=== PATIENT | male | born 1995 | race Caucasian/White ===

== ENCOUNTER 2022-10-15 16:37 | Inpatient (IN) ==
[2022-10-15] MEDS ORDERED: ZOFRAN INJ 4 MG VIAL ONE ×3 (16:45→23:17)
[2022-10-15] MEDS ORDERED: ZOFRAN INJ 4 MG VIAL IVP ONE ×2 (16:46→18:20)
[2022-10-15 16:50] VITALS: BMI 16.4
[2022-10-15] MEDS ORDERED: NS 1,000 ML IV 1,000 ML IV ONE ×3 (16:55→20:03)
[2022-10-15] MEDS ORDERED: NS 1,000 ML IV 1,000 ML ONE ×3 (16:56→19:47)
[2022-10-15 17:04] LABS: EOSINOPHILS # (AUTO) 0.4 x10^3/uL (0.0-0.2); HEMOGLOBIN 17.1 g/dL (13.5-18.0)
[2022-10-15 17:14] LABS: BASOPHILS # (AUTO) 0.2 X10^3/uL (0.0-0.1); BASOPHILS % (AUTO) 0.8 % (0.2-1.0); EOSINOPHILS % (AUTO) 1.7 % (0.9-2.9); HEMATOCRIT 52.1 % (42.0-54.0); LYMPHOCYTES # (AUTO) 2.7 X10^3/uL (1.3-2.9); MEAN CORPUSCULAR HEMOGLOBIN 29.5 pg (27.0-34.0); MEAN CORPUSCULAR HGB CONC 32.8 g/dL (33.0-35.0); MEAN CORPUSCULAR VOLUME 89.8 fL (80.0-100.0); MONOCYTES # (AUTO) 0.8 x10^3/uL (0.3-0.8); MONOCYTES % (AUTO) 3.8 % (0.0-13.0); NEUTROPHILS # (AUTO) 18.1 x10^3/uL (2.2-4.8); NEUTROPHILS % (AUTO) 81.7 % (42.0-75.0); RED CELL DISTRIBUTION WIDTH 14.6 % (11.6-16.5); WHITE BLOOD COUNT 22.2 X10^3/uL (3.6-10.0)
[2022-10-15 17:26] LABS: ALANINE AMINOTRANSFERASE 22 Units/L (12-78); ALBUMIN 4.9 g/dL (3.4-5.0); ALKALINE PHOSPHATASE 117 Units/L (46-116); ASPARTATE AMINO TRANSFERASE 23 Units/L (15-37); BLOOD UREA NITROGEN 15 mg/dL (7-18); CALCIUM 8.9 mg/dL (8.5-10.1); CARBON DIOXIDE 17.7 mmol/L (21-32); CHLORIDE 92 mmol/L (98-107); COR NA(FOR HYPERGLY) 141 mmol/L (136-145); CREATININE 1.15 mg/dL (0.70-1.30); LIPASE 46 Units/L (73-393); SODIUM 133 mmol/L (136-145); TOTAL PROTEIN 8.4 g/dL (6.4-8.2); eGFR NON BLACK RACES > 60 (>60)
[2022-10-15 17:55] LABS: BAND NEUTROPHILS % 3 % (0-10)
[2022-10-15 17:56] LABS: PLATELET MORPHOLOGY COMMENT NORMAL (NORMAL)
--- NOTE | 2022-10-15 18:14 | DR.N/VMALE ---
HPI Time Seen Time Seen by Provider: 10/15/22 18:10 Primary Care Physician Primary Care Physician: COHERN Complaints Chief Complaint Doctors Comments: NAUSEA,VOMITING AND DIARRHEA SINCE THIS AM. DENIES FEVER. Chief Complaint:: PT C/O OF NAUSEA/VOMITING/DIARRHEA THAT STARTED THIS MORNING PT DENIES FEVER. COVID-19 Coronavirus risk:travel/contact w/high risk person: No Has patient experienced Coronavirus symptoms: No Source History Provided: Patient Mode of Arrival Mode of Arrival: Wheelchair Timing Onset of Chief Complaint: 10/15/22 PMH PMH Past Medical History: Yes Past Medical History: Anxiety, Depression and Diabetes Past Surgical History: Yes Surgical History: Ortho Surgery Family History History of Family Medical Conditions: Yes Family Medical History: Diabetes Mellitus, Cancer, [place] and Coronary Artery Disease Social History Does patient currently use any type of tobacco product: Yes Have you used tobacco products in the last 12 months: Yes Type of Tobacco Use: Cigarettes Does any household member use tobacco: Yes Alcohol Use: Occasionally Do you use any recreational Drugs:: No Lives With: Spouse Lives Where: Home Travel Risk Coronavirus risk:travel/contact w/high risk person: No Has patient experienced Coronavirus symptoms: No Infectious screening In the last 2 months have you had wt loss of >10#?: NO Have you had fever, night sweats or hemotysis?: No Have you traveled outside the country in the last 6 months?: No Isolation: Standard ROS Review of Systems Constitutional: Other (NAUSEA,VOMITING AND DIARRHEA) Eyes: No Symptoms Reported ENTM: No Symptoms Reported Respiratoy: No Symptoms Reported Cardiovascular: No Symptoms Reported Gastrointestinal/Abdominal: Diarrhea, Nausea and Vomiting Genitourinary: No Symptoms Reported Neurological: No Symptoms Reported Musculoskeletal: No Symptoms Reported Integumentary: No Symptoms Reported Hematologic/Lymphatic: No Symptoms Reported Endocrine: No Symptoms Reported Psychiatric: No Symptoms Reported PE Vital Signs Vitals: Temperature 97.9 F Pulse Rate 116 Respiratory Rate 20 Blood Pressure 134/84 O2 Sat by Pulse Oximetry 95 General Limitations: No Limitations General Appearance: In Distress (MODERATE DISTRESS) Head Head Exam: Normal Inspection Eyes Eye exam: Normal Appearance, PERRL and EOMI ENT ENT Exam: Normal Exam, Normal Oropharynx and Normal External Ear Exam Neck Neck Exam: Normal Inspection and Full ROM Chest Chest Inspection: Normal Inspection and Symmetric Chest Wall Rise Respiratory Respiratory Exam: Normal Lung Sounds Bilat Respiratory Exam: Bilateral: Clear to Auscultation Cardiovascular Cardiovascular Exam: Regular Rate and Normal Rhythm Abdominal Exam Abdominal Exam: Hyperactive Bowel Sounds Rectal Rectal Exam: Deferred Extremities Extremities Exam: Normal Inspection Back Back Exam: Normal Inspection Neurologic Neurological Exam: Alert, Oriented X3 and CN II-XII Intact Psychiatric Psychiatric Exam: Anxious Skin Skin Exam: Warm, Dry and Intact MDM Differential Diagnosis Differential Diagnosis: Considerations may Include:: Gastroenteritis and Other (DIABETIC KETOACIDOSIS) COURSE Treatment Treatment: PATIENT WAS GIVEN A BLOUS OF NACL AND INITIALL 8MG OF ZOFRAN IV WITH NO RELEF OF NAUSEA AND VOMITING. WAS GIVEN COMPAZINE 10MG IV AND IT RELIEVED HIS NAUSEA AND VOMITING. HE HAD A BLOOD SUGAR OF 451 AND HE HAD MODERATE ACETONE IN BLOOD. HE WAS GIVEN 5 UNITS OF NOVULIN R IV AND HIS BLOOD SUGAR DECREASED TO 407 AND IT WAS 320 AFTER INSULIN AND BOLUS WAS COMPLETE. THE PATIENT WAS THEN PLACED ON NACL AT 125CC/HR. THIS PATIENT WAS ALSO POSITIVE FOR CAMPHYLOBACER ON STOOL FOR PARASITES . HE ALSO HAD A WBC OF 22.2. PATIENT WAS ADVISED THAT HE NEEDED TO BE PUT IN HOSPITAL TO CONTROL HIS DIABETIC KETOACIDOSIS AND TREAT HIS CAMPHYLOBACTOR SYMPTOMS OF DIARRHEA AND NAUSEA AND VOMITING. THEPATIENT STATED THAT HE IS AGREABLE TO THE PLAN. SPOKE TO DR GREENE AT 2150 AND HE STATED THAT HE WOULD ACCEPT THE PATIENT FOR ADMISSION. ROR Labs Reviewed Laboratory Results Reviewed?: Yes Result Diagrams: 10/15/22 16:51 10/15/22 16:51 Laboratory: 10/15/22 17:58 Stool - Final WBC 22.2 X10^3/uL (3.6-10.0) H 10/15/22 16:51 RBC 5.80 X10^6/uL (4.7-6.0) 10/15/22 16:51 Hgb 17.1 g/dL (13.5-18.0) 10/15/22 16:51 Hct 52.1 % (42.0-54.0) 10/15/22 16:51 MCV 89.8 fL (80.0-100.0) 10/15/22 16:51 MCH 29.5 pg (27.0-34.0) 10/15/22 16:51 MCHC 32.8 g/dL (33.0-35.0) L 10/15/22 16:51 RDW 14.6 % (11.6-16.5) 10/15/22 16:51 Plt Count 282 X10^3/uL (150.0-450.0) 10/15/22 16:51 Plt Count Comment Adequate (ADEQUATE) 10/15/22 16:51 MPV 10.0 fL (7.4-11.0) 10/15/22 16:51 Neut % (Auto) 81.7 % (42.0-75.0) H 10/15/22 16:51 Lymph % (Auto) 12.0 % (21.0-51.0) L 10/15/22 16:51 [place] % (Auto) 3.8 % (0.0-13.0) 10/15/22 16:51 Eos % (Auto) 1.7 % (0.9-2.9) 10/15/22 16:51 Baso % (Auto) 0.8 % (0.2-1.0) 10/15/22 16:51 Neut # (Auto) 18.1 x10^3/uL (2.2-4.8) H 10/15/22 16:51 Lymph # (Auto) 2.7 X10^3/uL (1.3-2.9) 10/15/22 16:51 [place] # (Auto) 0.8 x10^3/uL (0.3-0.8) 10/15/22 16:51 Eos # (Auto) 0.4 x10^3/uL (0.0-0.2) H 10/15/22 16:51 Baso # (Auto) 0.2 X10^3/uL (0.0-0.1) H 10/15/22 16:51 Absolute Nucleated RBC 0.2 /100WBC 10/15/22 16:51 Total Counted 100 10/15/22 16:51 Neutrophils % (Manual) 84 % (39-76) H 10/15/22 16:51 Band Neutrophils % 3 % (0-10) 10/15/22 16:51 Lymphocytes % (Manual) 10 % (13-43) L 10/15/22 16:51 Eosinophils % (Manual) 3 % (0-6) 10/15/22 16:51 Plt Morphology Comment Normal (NORMAL) 10/15/22 16:51 RBC Morphology Normal (NORMAL) 10/15/22 16:51 Sodium 133 mmol/L (136-145) L 10/15/22 16:51 Corrected Sodium 141 mmol/L (136-145) 10/15/22 16:51 Potassium 4.2 mmol/L (3.5-5.1) 10/15/22 16:51 Chloride 92 mmol/L (98-107) L 10/15/22 16:51 Carbon Dioxide 17.7 mmol/L (21-32) L 10/15/22 16:51 BUN 15 mg/dL (7-18) 10/15/22 16:51 Creatinine 1.15 mg/dL (0.70-1.30) 10/15/22 16:51 Est GFR (MDRD) Af Amer > 60 (>60) 10/15/22 16:51 Est GFR (MDRD) Non-Af > 60 (>60) 10/15/22 16:51 Glucose 451 mg/dL (65-99) H 10/15/22 16:51 POC Glucose (mg/dL) 320 mg/dL (65-99) H 10/15/22 19:56 Calcium 8.9 mg/dL (8.5-10.1) 10/15/22 16:51 Corrected Calcium TNP 10/15/22 16:51 Total Bilirubin 1.90 mg/dL (0.2-1.0) H 10/15/22 16:51 AST 23 Units/L (15-37) 10/15/22 16:51 ALT 22 Units/L (12-78) 10/15/22 16:51 Alkaline Phosphatase 117 Units/L (46-116) H 10/15/22 16:51 Total Protein 8.4 g/dL (6.4-8.2) H 10/15/22 16:51 Albumin 4.9 g/dL (3.4-5.0) 10/15/22 16:51 Globulin 3.5 g/dL (2.5-4.5) 10/15/22 16:51 Albumin/Globulin Ratio 1.4 Ratio (1.1-2.1) 10/15/22 16:51 Lipase 46 Units/L (73-393) L 10/15/22 16:51 Specimen Type Clean catch urine 10/15/22 17:58 Urine Color Straw (YELLOW) 10/15/22 17:58 Urine Appearance Clear (CLEAR) 10/15/22 17:58 Urine pH 5.0 (5.0 - 8.0) 10/15/22 17:58 Ur Specific [place] 1.025 (1.000-1.030) 10/15/22 17:58 Urine Protein 3+ (NEGATIVE) 10/15/22 17:58 Urine Glucose (UA) 4+ (NEGATIVE) 10/15/22 17:58 Urine Ketones 4+ (NEGATIVE) 10/15/22 17:58 Urine Blood 2+ (NEGATIVE) 10/15/22 17:58 Urine Nitrite Negative (NEGATIVE) 10/15/22 17:58 Urine Bilirubin Negative (NEGATIVE) 10/15/22 17:58 Urine Urobilinogen Normal (NORMAL) 10/15/22 17:58 Ur Leukocyte Esterase Negative (NEGATIVE) 10/15/22 17:58 Urine RBC 0-2 /HPF (0-3) 10/15/22 17:58 Urine WBC None seen /HPF (0-5) 10/15/22 17:58 Ur Squamous Epith Cells Rare /HPF (NEGATIVE) 10/15/22 17:58 Urine Bacteria Negative /HPF (NEGATIVE) 10/15/22 17:58 Ur Culture Indicated? No/not indicated 10/15/22 17:58 Stl Occult Blood (IFOB) Negative (NEGATIVE) 10/15/22 17:58 Stool for White Cells Positive (NEGATIVE) A 10/15/22 17:58 Stl C. diff Tox B Gene Negative (NEGATIVE) 10/15/22 17:58 Stl C. diff [id number]-[id number] Presumptive negative (NEGATIVE) 10/15/22 17:58 Acetone, Semi-Quant Moderate (NEGATIVE) H 10/15/22 16:51 Cryptosporid parvum Ag Negative (NEGATIVE) 10/15/22 17:58 Giardia lamblia Ag Negative (NEGATIVE) 10/15/22 17:58 Opioid Opioid Risk Tool Age (Juan C box if 16-45): No History of Preadolescent Sexual Abuse: No Total: 0 Total Score Risk Category: Low Risk Copyright: Epifanio DE OLIVEIRA predicting aberrant behaviors Discharge Plan Diagnosis Discharge Problem: Diabetic keto-acidosis, Vomiting and diarrhea, Campylobacter diarrhea, Leucocytosis Discharge Plan Patient Disposition: 09 ADMITTED INPATIENT Condition: Stable Prescriptions: No Action paroxetine HCl 20 mg tablet 1 tab PO QAM Fiasp U-100 Insulin 100 unit/mL Solution See Rx Instructions .ROUTE .COMPLEX Rx Instructions: 1 UNIT PER NUMBER OF CARB INTAKE insulin degludec [Tresiba U-100 Insulin] 100 unit/mL Solution 13 unit SUBCUT QDAY Health Concerns: Post Hospitalization: new medications and changes needed to prevent readmission or further decline. Pt educated and given instructions on all concerns. Plan of Treatment: Continue with present treatment and follow up plan. Pt is to keep follow up appointment as instructed and take medications as ordered. Orders to Discharge Patient Discharge Orders: Transfer (Routine); Ordered 10/15/22 Ordered By: Aristeo Angeles Follow ups/Referrals Follow ups/Referrals: alina vargas [Primary Care Provider] - 3 days
[2022-10-15] MEDS ORDERED: NovoLIN R (or HumuLIN R) IV ONE (18:34)
[2022-10-15 18:43] LABS: BILIRUBIN,URINE NEGATIVE (NEGATIVE); BLOOD/HEMOGLOBIN,URINE 2+ (NEGATIVE); GLUCOSE, URINE 4+ (NEGATIVE); KETONES,URINE 4+ (NEGATIVE); LEUKOCYTE ESTERASE ,URINE NEGATIVE (NEGATIVE); NITRITES,URINE NEGATIVE (NEGATIVE); PROTEIN,URINE 3+ (NEGATIVE); UROBILINOGEN,URINE NORMAL (NORMAL)
[2022-10-15 18:53] LABS: APPEARANCE,URINE CLEAR (CLEAR); COLOR,URINE STRAW (YELLOW); RBC,URINE 0-2 /HPF (0-3)
[2022-10-15 18:54] LABS: BACTERIA,URINE NEGATIVE /HPF (NEGATIVE); SQUAMOUS EPITHELIAL CELL,UR RARE /HPF (NEGATIVE)
[2022-10-15] MEDS ORDERED: NovoLIN R (or HumuLIN R) ONE ×2 (18:59→23:18)
[2022-10-15] MEDS ORDERED: COMPAZINE INJ IVP ONE (19:07)
[2022-10-15] MEDS ORDERED: COMPAZINE INJ ONE (19:09)
[2022-10-15 19:22] LABS: CRYPTOSPORIDIUM PARVUM ANTIGEN NEGATIVE (NEGATIVE); GIARDIA LAMBLIA ANTIGEN NEGATIVE (NEGATIVE)
[2022-10-15] MEDS ORDERED: PHENERGAN INJ 25 MG IM ONE ×2 (22:13→22:14)
[2022-10-15] MEDS: NovoLIN R (or HumuLIN R) SUBCUT PRN (23:29)
[2022-10-15] MEDS: NS 1,000 ML IV 1,000 ML IV SCH (23:30)
[2022-10-15] MEDS: ZOFRAN INJ 4 MG VIAL IVP SCH (23:31)
[2022-10-16] MEDS: NovoLIN R (or HumuLIN R) SUBCUT PRN (01:20)
--- NOTE | 2022-10-16 02:53 | RAD ---
PROCEDURE: Chest X-ray 1 View .HISTORY: Nausea, vomiting, and diarrhea today.TECHNIQUE: AP view .COMPARISON: None .TECHNICAL QUALITY: Satisfactory .FINDINGS:Normal size heart .Mediastinum and hilar regions show no masses or lymphadenopathy .Normal central vascularity .No pulmonary consolidation, masses, pleural fluid, or pneumothorax .No acute bony abnormality .IMPRESSION:No active cardiopulmonary disease .Electronically signed by: Wallace Olmstead (Oct 16, 2022 02:52:18)
[2022-10-16] MEDS: ZOFRAN INJ 4 MG VIAL IVP SCH ×4 (03:28→20:09)
[2022-10-16] MEDS: NS 1,000 ML IV 1,000 ML IV SCH ×2 (04:01→07:21)
[2022-10-16] MEDS ORDERED: D5 NS 1,000 ML IV 1,000 ML IV ONE (04:15)
[2022-10-16] MEDS ORDERED: D5 NS 1,000 ML IV 1,000 ML IV SCH (05:00)
[2022-10-16 05:04] LABS: BASOPHILS # (AUTO) 0.1 X10^3/uL (0.0-0.1); BASOPHILS % (AUTO) 0.4 % (0.2-1.0); EOSINOPHILS % (AUTO) 0.1 % (0.9-2.9); HEMATOCRIT 41.7 % (42.0-54.0); LYMPHOCYTES # (AUTO) 1.3 X10^3/uL (1.3-2.9); LYMPHOCYTES % (AUTO) 7.2 % (21.0-51.0); MEAN CORPUSCULAR HEMOGLOBIN 29.5 pg (27.0-34.0); MEAN CORPUSCULAR HGB CONC 33.7 g/dL (33.0-35.0); MEAN CORPUSCULAR VOLUME 87.5 fL (80.0-100.0); MEAN PLATELET VOLUME 9.4 fL (7.4-11.0); MONOCYTES # (AUTO) 1.1 x10^3/uL (0.3-0.8); MONOCYTES % (AUTO) 5.8 % (0.0-13.0); NEUTROPHILS # (AUTO) 15.8 x10^3/uL (2.2-4.8); NEUTROPHILS % (AUTO) 86.5 % (42.0-75.0); RED BLOOD COUNT 4.77 X10^6/uL (4.7-6.0); RED CELL DISTRIBUTION WIDTH 15.1 % (11.6-16.5); WHITE BLOOD COUNT 18.2 X10^3/uL (3.6-10.0)
[2022-10-16 05:17] LABS: HEMOGLOBIN 14.1 g/dL (13.5-18.0)
[2022-10-16 05:25] LABS: ALANINE AMINOTRANSFERASE 16 Units/L (12-78); ALBUMIN 3.5 g/dL (3.4-5.0); ALKALINE PHOSPHATASE 83 Units/L (46-116); ASPARTATE AMINO TRANSFERASE 25 Units/L (15-37); BLOOD UREA NITROGEN 12 mg/dL (7-18); CALCIUM 7.7 mg/dL (8.5-10.1); CARBON DIOXIDE 17.6 mmol/L (21-32); CHLORIDE 108 mmol/L (98-107); COR NA(FOR HYPERGLY) 142 mmol/L (136-145); CREATININE 1.15 mg/dL (0.70-1.30); SODIUM 141 mmol/L (136-145); TOTAL PROTEIN 6.2 g/dL (6.4-8.2); eGFR NON BLACK RACES > 60 (>60)
[2022-10-16 05:27] LABS: SERUM ACETONE MODERATE (NEGATIVE)
[2022-10-16] MEDS ORDERED: ZITHROMAX SUSP BTL 200 MG/5 ML PO SCH (09:00)
[2022-10-16] MEDS ORDERED: PHENERGAN INJ 25 MG IM ONE (10:33)
[2022-10-16 10:37] LABS: ABG BASE EXCESS -17.6 mmol/L (-2.0-2.0)
[2022-10-16 10:38] LABS: ABG ALLEN TEST POS; ABG HCO3 8.6 mmol/L (22-26)
[2022-10-16] MEDS: PHENERGAN INJ 25 MG IM PRN ×2 (10:41→16:50)
[2022-10-16] MEDS: MYXREDLIN 100 UNIT/100 ML BAG 100 UNIT/100 ML PLAST..BAG IV PRN (10:57)
--- NOTE | 2022-10-16 11:49 | DR.H&P ---
H&P History & Physical for Day of: H&P Date: 10/16/22 Chief Complaint Chief Complaint: Nausea, vomiting and diarrhea Allergies Allergies Allergy/AdvReac Type Severity Reaction Status Date / Time ibuprofen [From Motrin] Allergy Verified 10/01/22 05:42 morphine Allergy Verified 10/01/22 05:42 peanut Allergy Verified 10/01/22 05:42 Penicillins Allergy Verified 10/01/22 05:42 History of Present Illness History of Present Illness: This is a pleasant 27-year-old white male who presented to the emergency department yesterday evening with complaints of naus ea, vomiting and diarrhea that started earlier in the morning. Patient was ill- appearing in the emergency department and work-up revealed that he had moderate acetone in the blood consistent with diabetic ketoacidosis. Patient is a type I diabetic. Stool culture was done and test for Campylobacter was positive. Because of his DKA and Campylobacter enteritis we decided to go ahead and admitting to the ICU for treatment. He was noted to have an elevated white count of around 23,000. Past Medical History Past Medical History: Anxiety, Depression and Diabetes Past Surgical History Surgical History: Ortho Surgery Family History Family Medical History: Diabetes Mellitus, [place], Coronary Artery Disease, Heart Failure and Sudden Cardiac Social History Does patient currently use any type of tobacco product: No Have you used tobacco products in the last 12 months: No Type of Tobacco Use: None Does any household member use tobacco: No Alcohol Use: Occasionally Drug Use: None Medications Home Medications: ibuprofen [From Motrin] Allergy (Verified 10/01/22 05:42) morphine Allergy (Verified 10/01/22 05:42) peanut Allergy (Verified 10/01/22 05:42) Penicillins Allergy (Verified 10/01/22 05:42) Labs Result Diagrams: 10/16/22 04:37 10/16/22 10:44 Labs: 10/15/22 17:58 Stool Stool Culture - Preliminary 10/15/22 17:58 Stool - Final Laboratory WBC 18.2 X10^3/uL (3.6-10.0) H 10/16/22 04:37 RBC 4.77 X10^6/uL (4.7-6.0) 10/16/22 04:37 Hgb 14.1 g/dL (13.5-18.0) D 10/16/22 04:37 Hct 41.7 % (42.0-54.0) L 10/16/22 04:37 MCV 87.5 fL (80.0-100.0) 10/16/22 04:37 MCH 29.5 pg (27.0-34.0) 10/16/22 04:37 MCHC 33.7 g/dL (33.0-35.0) 10/16/22 04:37 RDW 15.1 % (11.6-16.5) 10/16/22 04:37 Plt Count 234 X10^3/uL (150.0-450.0) 10/16/22 04:37 Plt Count Comment Adequate (ADEQUATE) 10/15/22 16:51 MPV 9.4 fL (7.4-11.0) 10/16/22 04:37 Neut % (Auto) 86.5 % (42.0-75.0) H 10/16/22 04:37 Lymph % (Auto) 7.2 % (21.0-51.0) L 10/16/22 04:37 [place] % (Auto) 5.8 % (0.0-13.0) 10/16/22 04:37 Eos % (Auto) 0.1 % (0.9-2.9) L 10/16/22 04:37 Baso % (Auto) 0.4 % (0.2-1.0) 10/16/22 04:37 Neut # (Auto) 15.8 x10^3/uL (2.2-4.8) H 10/16/22 04:37 Lymph # (Auto) 1.3 X10^3/uL (1.3-2.9) 10/16/22 04:37 [place] # (Auto) 1.1 x10^3/uL (0.3-0.8) H 10/16/22 04:37 Eos # (Auto) 0.0 x10^3/uL (0.0-0.2) 10/16/22 04:37 Baso # (Auto) 0.1 X10^3/uL (0.0-0.1) 10/16/22 04:37 Absolute Nucleated RBC 0.0 /100WBC 10/16/22 04:37 Total Counted 100 10/15/22 16:51 Neutrophils % (Manual) 84 % (39-76) H 10/15/22 16:51 Band Neutrophils % 3 % (0-10) 10/15/22 16:51 Lymphocytes % (Manual) 10 % (13-43) L 10/15/22 16:51 Eosinophils % (Manual) 3 % (0-6) 10/15/22 16:51 Plt Morphology Comment Normal (NORMAL) 10/15/22 16:51 RBC Morphology Normal (NORMAL) 10/15/22 16:51 Sample Site Lr 10/16/22 10:34 ABG pH 7.200 (7.35-7.45) L 10/16/22 10:34 ABG pCO2 22.0 mmHg (35.0-45.0) L 10/16/22 10:34 ABG pO2 108.0 mmHg (80.0-100.0) H 10/16/22 10:34 ABG HCO3 8.6 mmol/L (22-26) L* 10/16/22 10:34 ABG O2 Saturation 97.0 % (90-100) 10/16/22 10:34 ABG Base Excess -17.6 mmol/L (-2.0-2.0) L 10/16/22 10:34 Kishan Test Pos 10/16/22 10:34 A-a Gradient 14.0 mmHg 10/16/22 10:34 FiO2 21.0 10/16/22 10:34 Blood Gas Comments Pt breanna well cdn 10/16/22 10:34 Sodium 141 mmol/L (136-145) 10/16/22 04:37 Corrected Sodium 142 mmol/L (136-145) 10/16/22 04:37 Potassium 4.3 mmol/L (3.5-5.1) 10/16/22 04:37 Chloride 108 mmol/L (98-107) H 10/16/22 04:37 Carbon Dioxide 17.6 mmol/L (21-32) L 10/16/22 04:37 BUN 12 mg/dL (7-18) 10/16/22 04:37 Creatinine 1.15 mg/dL (0.70-1.30) 10/16/22 04:37 Est GFR (MDRD) Af Amer > 60 (>60) 10/16/22 04:37 Est GFR (MDRD) Non-Af > 60 (>60) 10/16/22 04:37 Glucose 468 mg/dL (65-99) H 10/16/22 10:44 POC Glucose (mg/dL) 425 mg/dL (65-99) H 10/16/22 11:28 Calcium 7.7 mg/dL (8.5-10.1) L 10/16/22 04:37 Corrected Calcium TNP 10/16/22 04:37 Total Bilirubin 0.80 mg/dL (0.2-1.0) 10/16/22 04:37 AST 25 Units/L (15-37) 10/16/22 04:37 ALT 16 Units/L (12-78) 10/16/22 04:37 Alkaline Phosphatase 83 Units/L (46-116) 10/16/22 04:37 Total Protein 6.2 g/dL (6.4-8.2) L 10/16/22 04:37 Albumin 3.5 g/dL (3.4-5.0) 10/16/22 04:37 Globulin 2.7 g/dL (2.5-4.5) 10/16/22 04:37 Albumin/Globulin Ratio 1.3 Ratio (1.1-2.1) 10/16/22 04:37 Lipase 46 Units/L (73-393) L 10/15/22 16:51 Specimen Type Clean catch urine 10/15/22 17:58 Urine Color Straw (YELLOW) 10/15/22 17:58 Urine Appearance Clear (CLEAR) 10/15/22 17:58 Urine pH 5.0 (5.0 - 8.0) 10/15/22 17:58 Ur Specific [place] 1.025 (1.000-1.030) 10/15/22 17:58 Urine Protein 3+ (NEGATIVE) 10/15/22 17:58 Urine Glucose (UA) 4+ (NEGATIVE) 10/15/22 17:58 Urine Ketones 4+ (NEGATIVE) 10/15/22 17:58 Urine Blood 2+ (NEGATIVE) 10/15/22 17:58 Urine Nitrite Negative (NEGATIVE) 10/15/22 17:58 Urine Bilirubin Negative (NEGATIVE) 10/15/22 17:58 Urine Urobilinogen Normal (NORMAL) 10/15/22 17:58 Ur Leukocyte Esterase Negative (NEGATIVE) 10/15/22 17:58 Urine RBC 0-2 /HPF (0-3) 10/15/22 17:58 Urine WBC None seen /HPF (0-5) 10/15/22 17:58 Ur Squamous Epith Cells Rare /HPF (NEGATIVE) 10/15/22 17:58 Urine Bacteria Negative /HPF (NEGATIVE) 10/15/22 17:58 Ur Culture Indicated? No/not indicated 10/15/22 17:58 Stl Occult Blood (IFOB) Negative (NEGATIVE) 10/15/22 17:58 Stool for White Cells Positive (NEGATIVE) A 10/15/22 17:58 Stl C. diff Tox B Gene Negative (NEGATIVE) 10/15/22 17:58 Stl C. diff [id number] Presumptive negative (NEGATIVE) 10/15/22 17:58 Acetone, Semi-Quant Small (NEGATIVE) H 10/16/22 10:44 Cryptosporid parvum Ag Negative (NEGATIVE) 10/15/22 17:58 Giardia lamblia Ag Negative (NEGATIVE) 10/15/22 17:58 Review of Systems Constitutional: Sweats and Weakness Eyes: No Symptoms Reported ENT: No Symptoms Reported Respiratory: No Symptoms Reported Cardiovascular: No Symptoms Reported Gastrointestinal: Nausea, Vomiting and Diarrhea Genitourinary: No Symptoms Reported Musculoskeletal: No Symptoms Reported Skin: No Symptoms Reported Neurological: No Symptoms Reported Physical Exam Vital Signs: Temperature 99.1 F Pulse Rate 125 Respiratory Rate 30 Blood Pressure [Right Arm] 127/60 Blood Pressure 142/96 O2 Sat by Pulse Oximetry 100 Oriented: Other (Ill-appearing) Eyes: Normal Ear: Normal Nose: Normal Throat: Normal Respiratory: Clear Throughout Cardiovascular: Normal Auscultation: Bowel Sounds: Increased Palpation: Normal Tenderness: Normal Skin: Normal Musculoskeletal: Normal Psychiatric: Normal Mood Description: Calm Affect: Flat Speech Pattern: Clear and Appropriate Assessment/Plan (1) Campylobacter diarrhea: Status: Acute Plan: IV Cipro. (2) Leucocytosis: Narrative Support Text: Leukocytosis is mildly improved since last night. Status: Acute Plan: Starting IV Cipro and Flagyl. Continue IV fluid. (3) Diabetic keto-acidosis: Status: Acute Plan: Start insulin drip. I will also check ABG. If he has acidosis I will add bicarbonate to his IV fluid. (4) Vomiting and diarrhea: Status: Acute Plan: Patient is currently on Zofran. I will add as needed Phenergan also for improved nausea and vomiting. I am also adding IV Cipro and Flagyl. I will DC his Zithromax. Review H&P Reviewed: Yes Patient was examined?: Yes
[2022-10-16] MEDS: CIPRO IV 400 MG PREMIX* 400 MG/200 ML IV.SOLN. IV SCH ×2 (12:00→20:09)
[2022-10-16] MEDS: NS 1,000 ML IV 1,000 ML with SODIUM BICARBONATE 8.4% INJ ADULT 50 ML IV SCH ×2 (13:00)
[2022-10-16] MEDS: FLAGYL IV PREMIX 500 MG BAG 500 MG/100 ML BAG IV SCH ×2 (14:51→21:11)
[2022-10-16] MEDS ORDERED: SNACK - Diabetic Appropriate PO SCH (20:00)
[2022-10-17] MEDS: NS 1,000 ML IV 1,000 ML with SODIUM BICARBONATE 8.4% INJ ADULT 50 ML IV SCH ×4 (00:06→05:25)
[2022-10-17] MEDS: PHENERGAN INJ 25 MG IM PRN ×3 (02:09→15:10)
[2022-10-17] MEDS: ZOFRAN INJ 4 MG VIAL IVP SCH ×4 (03:27→20:19)
[2022-10-17 05:15] LABS: BASOPHILS % (AUTO) 0.3 % (0.2-1.0); HEMATOCRIT 37.3 % (42.0-54.0); HEMOGLOBIN 12.7 g/dL (13.5-18.0); LYMPHOCYTES # (AUTO) 0.9 X10^3/uL (1.3-2.9); LYMPHOCYTES % (AUTO) 6.6 % (21.0-51.0); MEAN CORPUSCULAR HEMOGLOBIN 29.9 pg (27.0-34.0); MEAN CORPUSCULAR HGB CONC 33.9 g/dL (33.0-35.0); MEAN CORPUSCULAR VOLUME 88.2 fL (80.0-100.0); MEAN PLATELET VOLUME 9.1 fL (7.4-11.0); MONOCYTES % (AUTO) 6.8 % (0.0-13.0); NEUTROPHILS # (AUTO) 12.2 x10^3/uL (2.2-4.8); NEUTROPHILS % (AUTO) 86.3 % (42.0-75.0); RED BLOOD COUNT 4.23 X10^6/uL (4.7-6.0); WHITE BLOOD COUNT 14.2 X10^3/uL (3.6-10.0)
[2022-10-17] MEDS: FLAGYL IV PREMIX 500 MG BAG 500 MG/100 ML BAG IV SCH ×3 (05:20→21:23)
[2022-10-17 05:28] LABS: ALANINE AMINOTRANSFERASE 19 Units/L (12-78); ALKALINE PHOSPHATASE 65 Units/L (46-116); ASPARTATE AMINO TRANSFERASE 45 Units/L (15-37); BLOOD UREA NITROGEN 10 mg/dL (7-18); CALCIUM 7.8 mg/dL (8.5-10.1); CARBON DIOXIDE 21.4 mmol/L (21-32); CHLORIDE 114 mmol/L (98-107); COR CA(FOR HYPOALB) 8.6 mg/dL (8.5-10.1); COR NA(FOR HYPERGLY) 151 mmol/L (136-145); CREATININE 0.89 mg/dL (0.70-1.30); MAGNESIUM 1.6 mg/dL (2.0-2.9); TOTAL PROTEIN 5.5 g/dL (6.4-8.2); eGFR NON BLACK RACES > 60 (>60)
[2022-10-17 05:41] LABS: SODIUM 150 mmol/L (136-145)
[2022-10-17 05:45] LABS: SERUM ACETONE SMALL (NEGATIVE)
[2022-10-17] MEDS ORDERED: POTASSIUM CHL 60 MEQ/NS 0.45% 500 ML IV PRN (05:47)
[2022-10-17] MEDS ORDERED: POTASSIUM CHLORIDE LIQ 20 MEQ UDC PO PRN (05:47)
[2022-10-17] MEDS ORDERED: K-DUR TAB 20 MEQ PO PRN (05:47)
[2022-10-17] MEDS ORDERED: POTASSIUM CHL 40 MEQ/NS 0.45% 500 ML IV PRN (05:47)
[2022-10-17] MEDS ORDERED: MICRO K EXTEN CAP 10 MEQ PO PRN (05:47)
[2022-10-17] MEDS ORDERED: KLOR-CON PO PRN (05:47)
[2022-10-17] MEDS ORDERED: MAGNESIUM SULFATE 1 GRAM/100 mL PREMIX 1 G/100 ML BAG IV ONE (05:58)
[2022-10-17] MEDS: MAGNESIUM SULFATE 1 GRAM/100 mL PREMIX 1 G/100 ML BAG IV PRN ×3 (06:21→21:24)
[2022-10-17 08:18] LABS: ABG BASE EXCESS -9.7 mmol/L (-2.0-2.0)
[2022-10-17 08:19] LABS: ABG HCO3 14.6 mmol/L (22-26)
[2022-10-17] MEDS ORDERED: COMPAZINE INJ IVP SCH (10:00)
[2022-10-17] MEDS ORDERED: NS IV ONE ×2 (10:00)
[2022-10-17] MEDS ORDERED: SODIUM BICARBONATE IV ONE ×2 (10:00)
[2022-10-17] MEDS: CIPRO IV 400 MG PREMIX* 400 MG/200 ML IV.SOLN. IV SCH ×2 (10:01→20:18)
[2022-10-17] MEDS: COMPAZINE INJ IVP PRN ×2 (12:07→19:29)
[2022-10-17] MEDS: K-RIDER 10 MEQ/NS 100 ML 10 MEQ/100 ML BAG IV PRN ×6 (12:45→20:20)
--- NOTE | 2022-10-17 13:18 | PCM.PROG ---
Progress Note Progress Note for Day of Date of Exam: 10/17/22 Subjective Subjective: Patient is lying in bed comfortably this morning. He has had continued nausea and vomiting and some diarrhea. He does report the diarrhea is still present but has slowed a little bit since yesterday. He is still nauseated and the Phenergan and ondansetron is not helping his nausea. I will start him on Compazine this morning see if that helps better. His acetone has gone from a moderate amount to the small amount in the serum. His white blood cell count has continued to decrease but is still just over 14,000 this morning. ABG shows a much improvement in his acidosis his pH is 7.34 this morning. His stool cultures were positive for Campylobacter. He is receiving IV ciprofloxac in for that. He is noted to be hyponatremic this morning as well is hypokalemic and hypomagnesemic. We will change his IV fluid to one half normal saline at 125 cc an hour. He had previously been on normal saline. We will also start the potassium replacement protocol to correct his hypokalemia and we will also correct his hypomagnesemia. Past Medical Family Social History Allergies: Allergies ibuprofen [From Motrin] Allergy (Verified 10/01/22 05:42) morphine Allergy (Verified 10/01/22 05:42) peanut Allergy (Verified 10/01/22 05:42) Penicillins Allergy (Verified 10/01/22 05:42) Review of Systems ROS: Changes notes (describe) (Patient has continued nausea, vomiting and diarrhea.) Vital Signs and I&O's Vital Signs: Temperature 99.4 F Pulse Rate 90 Respiratory Rate 18 Blood Pressure [Right Arm] 127/60 Blood Pressure 162/99 O2 Sat by Pulse Oximetry 99 Intake and Output: Intake & Output 10/15/22 10/16/22 10/17/22 10/18/22 11:59 11:59 11:59 11:59 Intake Total 1155 / 1155 3596 / 3596 Balance 1155 / 1155 3596 / 3596 Physical Exam Oriented: Other (Ill-appearing) Eyes: Normal Ear: Normal Nose: Normal Throat: Normal Respiratory: Normal Cardiovascular: Normal Auscultation: Bowel Sounds: Increased Tenderness: Normal Skin: Normal Musculoskeletal: Normal Psychiatric: Normal Mood Description: Calm Affect: Flat Speech Pattern: Clear and Appropriate Laboratory and Diagnostics Result Diagrams: 10/17/22 04:33 10/17/22 04:33 Labs: 10/15/22 17:58 Stool Stool Culture - Final 10/15/22 17:58 Stool - Final Laboratory WBC 14.2 X10^3/uL (3.6-10.0) H 10/17/22 04:33 RBC 4.23 X10^6/uL (4.7-6.0) L 10/17/22 04:33 Hgb 12.7 g/dL (13.5-18.0) L 10/17/22 04:33 Hct 37.3 % (42.0-54.0) L 10/17/22 04:33 MCV 88.2 fL (80.0-100.0) 10/17/22 04:33 MCH 29.9 pg (27.0-34.0) 10/17/22 04:33 MCHC 33.9 g/dL (33.0-35.0) 10/17/22 04:33 RDW 15.0 % (11.6-16.5) 10/17/22 04:33 Plt Count 233 X10^3/uL (150.0-450.0) 10/17/22 04:33 Plt Count Comment Adequate (ADEQUATE) 10/15/22 16:51 MPV 9.1 fL (7.4-11.0) 10/17/22 04:33 Neut % (Auto) 86.3 % (42.0-75.0) H 10/17/22 04:33 Lymph % (Auto) 6.6 % (21.0-51.0) L 10/17/22 04:33 [place] % (Auto) 6.8 % (0.0-13.0) 10/17/22 04:33 Eos % (Auto) 0.0 % (0.9-2.9) L 10/17/22 04:33 Baso % (Auto) 0.3 % (0.2-1.0) 10/17/22 04:33 Neut # (Auto) 12.2 x10^3/uL (2.2-4.8) H 10/17/22 04:33 Lymph # (Auto) 0.9 X10^3/uL (1.3-2.9) L 10/17/22 04:33 [place] # (Auto) 1.0 x10^3/uL (0.3-0.8) H 10/17/22 04:33 Eos # (Auto) 0.0 x10^3/uL (0.0-0.2) 10/17/22 04:33 Baso # (Auto) 0.0 X10^3/uL (0.0-0.1) 10/17/22 04:33 Absolute Nucleated RBC 0.0 /100WBC 10/17/22 04:33 Total Counted 100 10/15/22 16:51 Neutrophils % (Manual) 84 % (39-76) H 10/15/22 16:51 Band Neutrophils % 3 % (0-10) 10/15/22 16:51 Lymphocytes % (Manual) 10 % (13-43) L 10/15/22 16:51 Eosinophils % (Manual) 3 % (0-6) 10/15/22 16:51 Plt Morphology Comment Normal (NORMAL) 10/15/22 16:51 RBC Morphology Normal (NORMAL) 10/15/22 16:51 Sample Site [facility] 10/17/22 08:13 ABG pH 7.340 (7.35-7.45) L 10/17/22 08:13 ABG pCO2 27.0 mmHg (35.0-45.0) L 10/17/22 08:13 ABG pO2 104.0 mmHg (80.0-100.0) H 10/17/22 08:13 ABG HCO3 14.6 mmol/L (22-26) L* 10/17/22 08:13 ABG O2 Saturation 98.0 % (90-100) 10/17/22 08:13 ABG Base Excess -9.7 mmol/L (-2.0-2.0) L 10/17/22 08:13 Kishan Test N/a 10/17/22 08:13 A-a Gradient 12.0 mmHg 10/17/22 08:13 FiO2 21.0 10/17/22 08:13 Blood Gas Comments Pt breanna well elj 10/17/22 08:13 Sodium 150 mmol/L (136-145) H* 10/17/22 04:33 Corrected Sodium 151 mmol/L (136-145) H 10/17/22 04:33 Potassium 3.2 mmol/L (3.5-5.1) L 10/17/22 04:33 Chloride 114 mmol/L (98-107) H 10/17/22 04:33 Carbon Dioxide 21.4 mmol/L (21-32) 10/17/22 04:33 BUN 10 mg/dL (7-18) 10/17/22 04:33 Creatinine 0.89 mg/dL (0.70-1.30) 10/17/22 04:33 Est GFR (MDRD) Af Amer > 60 (>60) 10/17/22 04:33 Est GFR (MDRD) Non-Af > 60 (>60) 10/17/22 04:33 Glucose 127 mg/dL (65-99) H 10/17/22 04:33 POC Glucose (mg/dL) 133 mg/dL (65-99) H 10/17/22 12:48 Calcium 7.8 mg/dL (8.5-10.1) L 10/17/22 04:33 Corrected Calcium 8.6 mg/dL (8.5-10.1) 10/17/22 04:33 Magnesium 1.6 mg/dL (2.0-2.9) L 10/17/22 04:33 Total Bilirubin 0.90 mg/dL (0.2-1.0) 10/17/22 04:33 AST 45 Units/L (15-37) H 10/17/22 04:33 ALT 19 Units/L (12-78) 10/17/22 04:33 Alkaline Phosphatase 65 Units/L (46-116) 10/17/22 04:33 Total Protein 5.5 g/dL (6.4-8.2) L 10/17/22 04:33 Albumin 3.0 g/dL (3.4-5.0) L 10/17/22 04:33 Globulin 2.5 g/dL (2.5-4.5) 10/17/22 04:33 Albumin/Globulin Ratio 1.2 Ratio (1.1-2.1) 10/17/22 04:33 Lipase 46 Units/L (73-393) L 10/15/22 16:51 Specimen Type Clean catch urine 10/15/22 17:58 Urine Color Straw (YELLOW) 10/15/22 17:58 Urine Appearance Clear (CLEAR) 10/15/22 17:58 Urine pH 5.0 (5.0 - 8.0) 10/15/22 17:58 Ur Specific [place] 1.025 (1.000-1.030) 10/15/22 17:58 Urine Protein 3+ (NEGATIVE) 10/15/22 17:58 Urine Glucose (UA) 4+ (NEGATIVE) 10/15/22 17:58 Urine Ketones 4+ (NEGATIVE) 10/15/22 17:58 Urine Blood 2+ (NEGATIVE) 10/15/22 17:58 Urine Nitrite Negative (NEGATIVE) 10/15/22 17:58 Urine Bilirubin Negative (NEGATIVE) 10/15/22 17:58 Urine Urobilinogen Normal (NORMAL) 10/15/22 17:58 Ur Leukocyte Esterase Negative (NEGATIVE) 10/15/22 17:58 Urine RBC 0-2 /HPF (0-3) 10/15/22 17:58 Urine WBC None seen /HPF (0-5) 10/15/22 17:58 Ur Squamous Epith Cells Rare /HPF (NEGATIVE) 10/15/22 17:58 Urine Bacteria Negative /HPF (NEGATIVE) 10/15/22 17:58 Ur Culture Indicated? No/not indicated 10/15/22 17:58 Stl Occult Blood (IFOB) Negative (NEGATIVE) 10/15/22 17:58 Stool for White Cells Positive (NEGATIVE) A 10/15/22 17:58 Stl C. diff Tox B Gene Negative (NEGATIVE) 10/15/22 17:58 Stl C. diff [id number] Presumptive negative (NEGATIVE) 10/15/22 17:58 Acetone, Semi-Quant Small (NEGATIVE) H 10/17/22 10:05 Cryptosporid parvum Ag Negative (NEGATIVE) 10/15/22 17:58 Giardia lamblia Ag Negative (NEGATIVE) 10/15/22 17:58 Plan (1) Campylobacter diarrhea: Status: Acute Plan: IV Cipro. (2) Leucocytosis: Status: Acute Narrative Support Text: Leukocytosis continues to improve daily. Plan: Starting IV Cipro and Flagyl. Continue IV fluid. (3) Diabetic keto-acidosis: Status: Acute Narrative Support Text: DKA improved with a small amount of serum acetone this morning. Plan: Continue insulin drip. I will also check ABG. If he has acidosis I will add bicarbonate to his IV fluid x1 this morning then DC it afterwards.. (4) Vomiting and diarrhea: Status: Acute Plan: Patient is currently on Zofran. I will add as needed Phenergan also for improved nausea and vomiting. I am also adding IV Cipro and Flagyl. I will DC his Zithromax. I will add Compazine 10 mg IV every 6 hours as needed nausea and vomiting. (5) Hypernatremia: Status: Acute Plan: DC normal saline and change to half-normal saline 125 cc/h. (6) Hypokalemia: Status: Acute Plan: Correct hypokalemia with potassium replacement protocol. (7) Hypomagnesemia: Status: Acute Plan: Low magnesium with magnesium sulfate on the potassium replacement protocol
[2022-10-17] MEDS ORDERED: NS 1/2 1,000 ML IV 1,000 ML IV ONE (19:09)
[2022-10-17] MEDS: NS 1/2 1,000 ML IV 1,000 ML IV SCH (19:47)
[2022-10-17] MEDS ORDERED: CIPRO IV 400 MG PREMIX* 400 MG/200 ML IV.SOLN. IV ONE (19:48)
[2022-10-18] MEDS: MAGNESIUM SULFATE 1 GRAM/100 mL PREMIX 1 G/100 ML BAG IV PRN (01:03)
[2022-10-18] MEDS: COMPAZINE INJ IVP PRN ×3 (02:05→21:54)
[2022-10-18] MEDS: ZOFRAN INJ 4 MG VIAL IVP SCH ×4 (03:02→20:01)
[2022-10-18] MEDS: NS 1/2 1,000 ML IV 1,000 ML IV SCH ×4 (03:03→17:01)
[2022-10-18 04:55] LABS: BASOPHILS # (AUTO) 0.1 X10^3/uL (0.0-0.1); BASOPHILS % (AUTO) 0.4 % (0.2-1.0); EOSINOPHILS % (AUTO) 0.1 % (0.9-2.9); HEMOGLOBIN 12.3 g/dL (13.5-18.0); LYMPHOCYTES # (AUTO) 1.5 X10^3/uL (1.3-2.9); LYMPHOCYTES % (AUTO) 12.9 % (21.0-51.0); MEAN CORPUSCULAR HEMOGLOBIN 29.8 pg (27.0-34.0); MEAN CORPUSCULAR HGB CONC 34.1 g/dL (33.0-35.0); MEAN CORPUSCULAR VOLUME 87.4 fL (80.0-100.0); MEAN PLATELET VOLUME 8.6 fL (7.4-11.0); MONOCYTES # (AUTO) 0.9 x10^3/uL (0.3-0.8); NEUTROPHILS # (AUTO) 9.3 x10^3/uL (2.2-4.8); NEUTROPHILS % (AUTO) 78.6 % (42.0-75.0); RED BLOOD COUNT 4.12 X10^6/uL (4.7-6.0); RED CELL DISTRIBUTION WIDTH 14.8 % (11.6-16.5); WHITE BLOOD COUNT 11.8 X10^3/uL (3.6-10.0)
[2022-10-18] MEDS: FLAGYL IV PREMIX 500 MG BAG 500 MG/100 ML BAG IV SCH ×3 (05:03→21:00)
[2022-10-18 05:07] LABS: ALANINE AMINOTRANSFERASE 17 Units/L (12-78); ALBUMIN 2.8 g/dL (3.4-5.0); ALKALINE PHOSPHATASE 60 Units/L (46-116); ASPARTATE AMINO TRANSFERASE 51 Units/L (15-37); BLOOD UREA NITROGEN 7 mg/dL (7-18); CALCIUM 7.4 mg/dL (8.5-10.1); CARBON DIOXIDE 27.2 mmol/L (21-32); CHLORIDE 109 mmol/L (98-107); COR CA(FOR HYPOALB) 8.4 mg/dL (8.5-10.1); COR NA(FOR HYPERGLY) 144 mmol/L (136-145); CREATININE 0.81 mg/dL (0.70-1.30); MAGNESIUM 2.3 mg/dL (2.0-2.9); SODIUM 143 mmol/L (136-145); TOTAL PROTEIN 5.1 g/dL (6.4-8.2); eGFR NON BLACK RACES > 60 (>60)
[2022-10-18 05:12] LABS: SERUM ACETONE SMALL (NEGATIVE)
[2022-10-18] MEDS: K-RIDER 10 MEQ/NS 100 ML 10 MEQ/100 ML BAG IV PRN ×4 (05:59→12:40)
[2022-10-18] MEDS: PHENERGAN INJ 25 MG IM PRN ×2 (07:26→18:09)
[2022-10-18] MEDS: LEVAQUIN PREMIX IV 500 MG 500 MG/100 ML BAG IV SCH (08:52)
[2022-10-18] MEDS: MYXREDLIN 100 UNIT/100 ML BAG 100 UNIT/100 ML PLAST..BAG IV PRN (10:05)
[2022-10-18] MEDS ORDERED: LOPRESSOR INJ 5 MG AMP IVP PRN (13:36)
--- NOTE | 2022-10-18 14:56 | PCM.PROG ---
Progress Note Progress Note for Day of Date of Exam: 10/18/22 Subjective Subjective: Patient is lying in bed this morning. He reports he is feeling a little bit better. He reports not having any more diarrhea since last night. His nausea is improved but is still present. His white blood cell count is almost normalized this morning. He was noted to have some hypertension and tachycardia earlier so started him on IV Lopressor 5 mg every 12 hours. All plan we will transition him over to p.o. metoprolol succinate once his nausea has subsided so he can take something by mouth. He still has small amount acetone in the serum this morning. We will plan on rechecking it tomorrow morning and another ABG tomorrow morning as well. We will plan on discharging home once his DKA has resolved and his serum acetone is negative. Potassium slightly low this morning which we will give him p.o. potassium to correct it. Past Medical Family Social History Allergies: Allergies ibuprofen [From Motrin] Allergy (Verified 10/01/22 05:42) morphine Allergy (Verified 10/01/22 05:42) peanut Allergy (Verified 10/01/22 05:42) Penicillins Allergy (Verified 10/01/22 05:42) Review of Systems ROS: Changes notes (describe) (Patient has continued nausea, vomiting and diarrhea.) Vital Signs and I&O's Vital Signs: Temperature 98.6 F Pulse Rate 73 Respiratory Rate 26 Blood Pressure [Right Arm] 127/60 Blood Pressure 161/101 O2 Sat by Pulse Oximetry 99 Intake and Output: Intake & Output 10/16/22 10/17/22 10/18/22 10/19/22 11:59 11:59 11:59 11:59 Intake Total 1155 / 1155 3596 / 3596 3540 / 3540 7.4 / 7.4 Output Total 500 / 500 Balance 1155 / 1155 3596 / 3596 3040 / 3040 7.4 / 7.4 Physical Exam Oriented: Other (Ill-appearing) Eyes: Normal Ear: Normal Nose: Normal Throat: Normal Respiratory: Normal Cardiovascular: Normal Auscultation: Bowel Sounds: Increased Tenderness: Normal Skin: Normal Musculoskeletal: Normal Psychiatric: Normal Mood Description: Calm Affect: Flat Speech Pattern: Clear and Appropriate Laboratory and Diagnostics Result Diagrams: 10/18/22 04:40 10/18/22 14:29 Labs: 10/15/22 17:58 Stool Stool Culture - Final 10/15/22 17:58 Stool - Final Laboratory WBC 11.8 X10^3/uL (3.6-10.0) H 10/18/22 04:40 RBC 4.12 X10^6/uL (4.7-6.0) L 10/18/22 04:40 Hgb 12.3 g/dL (13.5-18.0) L 10/18/22 04:40 Hct 36.0 % (42.0-54.0) L 10/18/22 04:40 MCV 87.4 fL (80.0-100.0) 10/18/22 04:40 MCH 29.8 pg (27.0-34.0) 10/18/22 04:40 MCHC 34.1 g/dL (33.0-35.0) 10/18/22 04:40 RDW 14.8 % (11.6-16.5) 10/18/22 04:40 Plt Count 209 X10^3/uL (150.0-450.0) 10/18/22 04:40 Plt Count Comment Adequate (ADEQUATE) 10/15/22 16:51 MPV 8.6 fL (7.4-11.0) 10/18/22 04:40 Neut % (Auto) 78.6 % (42.0-75.0) H 10/18/22 04:40 Lymph % (Auto) 12.9 % (21.0-51.0) L 10/18/22 04:40 [place] % (Auto) 8.0 % (0.0-13.0) 10/18/22 04:40 Eos % (Auto) 0.1 % (0.9-2.9) L 10/18/22 04:40 Baso % (Auto) 0.4 % (0.2-1.0) 10/18/22 04:40 Neut # (Auto) 9.3 x10^3/uL (2.2-4.8) H 10/18/22 04:40 Lymph # (Auto) 1.5 X10^3/uL (1.3-2.9) 10/18/22 04:40 [place] # (Auto) 0.9 x10^3/uL (0.3-0.8) H 10/18/22 04:40 Eos # (Auto) 0.0 x10^3/uL (0.0-0.2) 10/18/22 04:40 Baso # (Auto) 0.1 X10^3/uL (0.0-0.1) 10/18/22 04:40 Absolute Nucleated RBC 0.0 /100WBC 10/18/22 04:40 Total Counted 100 10/15/22 16:51 Neutrophils % (Manual) 84 % (39-76) H 10/15/22 16:51 Band Neutrophils % 3 % (0-10) 10/15/22 16:51 Lymphocytes % (Manual) 10 % (13-43) L 10/15/22 16:51 Eosinophils % (Manual) 3 % (0-6) 10/15/22 16:51 Plt Morphology Comment Normal (NORMAL) 10/15/22 16:51 RBC Morphology Normal (NORMAL) 10/15/22 16:51 Sample Site [facility] 10/17/22 08:13 ABG pH 7.340 (7.35-7.45) L 10/17/22 08:13 ABG pCO2 27.0 mmHg (35.0-45.0) L 10/17/22 08:13 ABG pO2 104.0 mmHg (80.0-100.0) H 10/17/22 08:13 ABG HCO3 14.6 mmol/L (22-26) L* 10/17/22 08:13 ABG O2 Saturation 98.0 % (90-100) 10/17/22 08:13 ABG Base Excess -9.7 mmol/L (-2.0-2.0) L 10/17/22 08:13 Kishan Test N/a 10/17/22 08:13 A-a Gradient 12.0 mmHg 10/17/22 08:13 FiO2 21.0 10/17/22 08:13 Blood Gas Comments Pt breanna well elj 10/17/22 08:13 Sodium 143 mmol/L (136-145) 10/18/22 04:40 Corrected Sodium 144 mmol/L (136-145) 10/18/22 04:40 Potassium 3.3 mmol/L (3.5-5.1) L 10/18/22 14:29 Chloride 109 mmol/L (98-107) H 10/18/22 04:40 Carbon Dioxide 27.2 mmol/L (21-32) 10/18/22 04:40 BUN 7 mg/dL (7-18) 10/18/22 04:40 Creatinine 0.81 mg/dL (0.70-1.30) 10/18/22 04:40 Est GFR (MDRD) Af Amer > 60 (>60) 10/18/22 04:40 Est GFR (MDRD) Non-Af > 60 (>60) 10/18/22 04:40 Glucose 127 mg/dL (65-99) H 10/18/22 04:40 POC Glucose (mg/dL) 162 mg/dL (65-99) H 10/18/22 14:17 Calcium 7.4 mg/dL (8.5-10.1) L 10/18/22 04:40 Corrected Calcium 8.4 mg/dL (8.5-10.1) L 10/18/22 04:40 Magnesium 2.3 mg/dL (2.0-2.9) 10/18/22 04:40 Total Bilirubin 1.10 mg/dL (0.2-1.0) H 10/18/22 04:40 AST 51 Units/L (15-37) H 10/18/22 04:40 ALT 17 Units/L (12-78) 10/18/22 04:40 Alkaline Phosphatase 60 Units/L (46-116) 10/18/22 04:40 Total Protein 5.1 g/dL (6.4-8.2) L 10/18/22 04:40 Albumin 2.8 g/dL (3.4-5.0) L 10/18/22 04:40 Globulin 2.3 g/dL (2.5-4.5) L 10/18/22 04:40 Albumin/Globulin Ratio 1.2 Ratio (1.1-2.1) 10/18/22 04:40 Lipase 46 Units/L (73-393) L 10/15/22 16:51 Specimen Type Clean catch urine 10/15/22 17:58 Urine Color Straw (YELLOW) 10/15/22 17:58 Urine Appearance Clear (CLEAR) 10/15/22 17:58 Urine pH 5.0 (5.0 - 8.0) 10/15/22 17:58 Ur Specific [place] 1.025 (1.000-1.030) 10/15/22 17:58 Urine Protein 3+ (NEGATIVE) 10/15/22 17:58 Urine Glucose (UA) 4+ (NEGATIVE) 10/15/22 17:58 Urine Ketones 4+ (NEGATIVE) 10/15/22 17:58 Urine Blood 2+ (NEGATIVE) 10/15/22 17:58 Urine Nitrite Negative (NEGATIVE) 10/15/22 17:58 Urine Bilirubin Negative (NEGATIVE) 10/15/22 17:58 Urine Urobilinogen Normal (NORMAL) 10/15/22 17:58 Ur Leukocyte Esterase Negative (NEGATIVE) 10/15/22 17:58 Urine RBC 0-2 /HPF (0-3) 10/15/22 17:58 Urine WBC None seen /HPF (0-5) 10/15/22 17:58 Ur Squamous Epith Cells Rare /HPF (NEGATIVE) 10/15/22 17:58 Urine Bacteria Negative /HPF (NEGATIVE) 10/15/22 17:58 Ur Culture Indicated? No/not indicated 10/15/22 17:58 Stl Occult Blood (IFOB) Negative (NEGATIVE) 10/15/22 17:58 Stool for White Cells Positive (NEGATIVE) A 10/15/22 17:58 Stl C. diff Tox B Gene Negative (NEGATIVE) 10/15/22 17:58 Stl C. diff [id number] Presumptive negative (NEGATIVE) 10/15/22 17:58 Acetone, Semi-Quant Small (NEGATIVE) H 10/18/22 10:42 Cryptosporid parvum Ag Negative (NEGATIVE) 10/15/22 17:58 Giardia lamblia Ag Negative (NEGATIVE) 10/15/22 17:58 Plan (1) Campylobacter diarrhea: Status: Acute Narrative Support Text: Diarrhea is slowing down now. Plan: IV Cipro. (2) Leucocytosis: Status: Acute Narrative Support Text: Continues to improve daily. Plan: Starting IV Cipro and Flagyl. Continue IV fluid. (3) Diabetic keto-acidosis: Status: Acute Narrative Support Text: Improving but not completely resolved. Plan: Continue insulin drip. I will also check ABG and serum acetone in the a.m. (4) Vomiting and diarrhea: Status: Acute Plan: Patient is currently on Zofran. I will add as needed Phenergan also for improved nausea and vomiting. I am also adding IV Cipro and Flagyl. I will DC his Zithromax. I will add Compazine 10 mg IV every 6 hours as needed nausea and vomiting. (5) Hypernatremia: Status: Acute Plan: DC normal saline and change to half-normal saline 125 cc/h. (6) Hypokalemia: Status: Acute Plan: Correct hypokalemia with potassium replacement protocol. (7) Hypomagnesemia: Status: Acute Plan: Low magnesium with magnesium sulfate on the potassium replacement protocol
[2022-10-18] MEDS ORDERED: NS 1/2 1,000 ML IV 1,000 ML IV ONE (16:38)
[2022-10-18] MEDS: LOPRESSOR INJ 5 MG AMP IVP SCH (20:06)
[2022-10-19] MEDS ORDERED: NS 1/2 1,000 ML IV 1,000 ML IV ONE (00:45)
[2022-10-19] MEDS: K-RIDER 10 MEQ/NS 100 ML 10 MEQ/100 ML BAG IV PRN ×3 (01:08→07:24)
[2022-10-19] MEDS: NS 1/2 1,000 ML IV 1,000 ML IV SCH ×3 (02:00→18:35)
[2022-10-19] MEDS: ZOFRAN INJ 4 MG VIAL IVP SCH ×4 (02:00→20:25)
[2022-10-19] MEDS: COMPAZINE INJ IVP PRN (03:11)
[2022-10-19] MEDS: FLAGYL IV PREMIX 500 MG BAG 500 MG/100 ML BAG IV SCH ×3 (05:07→21:23)
[2022-10-19 05:25] LABS: BASOPHILS # (AUTO) 0.1 X10^3/uL (0.0-0.1); BASOPHILS % (AUTO) 0.6 % (0.2-1.0); EOSINOPHILS # (AUTO) 0.1 x10^3/uL (0.0-0.2); EOSINOPHILS % (AUTO) 0.7 % (0.9-2.9); HEMATOCRIT 42.5 % (42.0-54.0); HEMOGLOBIN 14.5 g/dL (13.5-18.0); LYMPHOCYTES # (AUTO) 1.6 X10^3/uL (1.3-2.9); LYMPHOCYTES % (AUTO) 18.7 % (21.0-51.0); MEAN CORPUSCULAR HGB CONC 34.1 g/dL (33.0-35.0); MONOCYTES # (AUTO) 0.7 x10^3/uL (0.3-0.8); MONOCYTES % (AUTO) 8.1 % (0.0-13.0); NEUTROPHILS # (AUTO) 6.2 x10^3/uL (2.2-4.8); NEUTROPHILS % (AUTO) 71.9 % (42.0-75.0); RED BLOOD COUNT 4.83 X10^6/uL (4.7-6.0); RED CELL DISTRIBUTION WIDTH 14.4 % (11.6-16.5); WHITE BLOOD COUNT 8.6 X10^3/uL (3.6-10.0)
[2022-10-19 05:45] LABS: ALANINE AMINOTRANSFERASE 24 Units/L (12-78); ALBUMIN 3.2 g/dL (3.4-5.0); ALKALINE PHOSPHATASE 69 Units/L (46-116); ASPARTATE AMINO TRANSFERASE 68 Units/L (15-37); BLOOD UREA NITROGEN 6 mg/dL (7-18); CALCIUM 7.6 mg/dL (8.5-10.1); CARBON DIOXIDE 30.1 mmol/L (21-32); CHLORIDE 101 mmol/L (98-107); COR CA(FOR HYPOALB) 8.2 mg/dL (8.5-10.1); COR NA(FOR HYPERGLY) 138 mmol/L (136-145); CREATININE 0.75 mg/dL (0.70-1.30); SODIUM 137 mmol/L (136-145); TOTAL PROTEIN 5.7 g/dL (6.4-8.2); eGFR NON BLACK RACES > 60 (>60)
[2022-10-19 08:12] LABS: ABG BASE EXCESS 2.1 mmol/L (-2.0-2.0); ABG HCO3 25.1 mmol/L (22-26)
[2022-10-19 08:13] LABS: ABG ALLEN TEST POS
[2022-10-19] MEDS: LEVAQUIN PREMIX IV 500 MG 500 MG/100 ML BAG IV SCH (08:46)
[2022-10-19] MEDS: LOPRESSOR INJ 5 MG AMP IVP SCH ×2 (08:47→20:26)
[2022-10-19] MEDS: MAGNESIUM SULFATE 1 GRAM/100 mL PREMIX 1 G/100 ML BAG IV PRN ×2 (09:25→11:12)
[2022-10-19] MEDS: PHENERGAN INJ 25 MG IM PRN (10:32)
--- NOTE | 2022-10-19 15:23 | PCM.PROG ---
Progress Note Progress Note for Day of Date of Exam: 10/19/22 Subjective Subjective: Patient is lying in bed this morning. He reports he is feeling a good bit better than the day before. He has had no further diarrhea and no further vomiting at this point time. His white blood cell count has normalized this morning. He still has small acetone from earlier this morning. We rechecked it around 1400 today and see he still has a small amount acetone. We will continue with the insulin drip protocol at this time and recheck his serum acetone again tomorrow. We will start him on a diabetic diet today as well. ABG was done this morning that shows his acidosis has resolved. Hopefully the patient will be ready for discharge home tomorrow if his serum acetone is negati ve. Past Medical Family Social History Allergies: Allergies ibuprofen [From Motrin] Allergy (Verified 10/01/22 05:42) morphine Allergy (Verified 10/01/22 05:42) peanut Allergy (Verified 10/01/22 05:42) Penicillins Allergy (Verified 10/01/22 05:42) Review of Systems ROS: Changes notes (describe) (Patient has continued nausea, vomiting and diarrhea.) Vital Signs and I&O's Vital Signs: Temperature 99 F Pulse Rate 95 Respiratory Rate 32 Blood Pressure [Right Arm] 127/60 Blood Pressure 129/85 O2 Sat by Pulse Oximetry 100 Intake and Output: Intake & Output 10/17/22 10/18/22 10/19/22 10/20/22 11:59 11:59 11:59 11:59 Intake Total 3596 / 3596 3540 / 3540 3067.1 / 3067.1 6.1 / 6.1 Output Total 500 / 500 1400 / 1400 Balance 3596 / 3596 3040 / 3040 1667.1 / 1667.1 6.1 / 6.1 Physical Exam Oriented: Other (Ill-appearing) Eyes: Normal Ear: Normal Nose: Normal Throat: Normal Respiratory: Normal Cardiovascular: Normal Auscultation: Bowel Sounds: Increased Tenderness: Normal Skin: Normal Musculoskeletal: Normal Psychiatric: Normal Mood Description: Calm Affect: Flat Speech Pattern: Clear and Appropriate Laboratory and Diagnostics Result Diagrams: 10/19/22 04:30 10/19/22 10:02 Labs: 10/15/22 17:58 Stool Stool Culture - Final 10/15/22 17:58 Stool - Final Laboratory WBC 8.6 X10^3/uL (3.6-10.0) 10/19/22 04:30 RBC 4.83 X10^6/uL (4.7-6.0) 10/19/22 04:30 Hgb 14.5 g/dL (13.5-18.0) D 10/19/22 04:30 Hct 42.5 % (42.0-54.0) 10/19/22 04:30 MCV 88.0 fL (80.0-100.0) 10/19/22 04:30 MCH 30.0 pg (27.0-34.0) 10/19/22 04:30 MCHC 34.1 g/dL (33.0-35.0) 10/19/22 04:30 RDW 14.4 % (11.6-16.5) 10/19/22 04:30 Plt Count 216 X10^3/uL (150.0-450.0) 10/19/22 04:30 Plt Count Comment Adequate (ADEQUATE) 10/15/22 16:51 MPV 9.0 fL (7.4-11.0) 10/19/22 04:30 Neut % (Auto) 71.9 % (42.0-75.0) 10/19/22 04:30 Lymph % (Auto) 18.7 % (21.0-51.0) L 10/19/22 04:30 [place] % (Auto) 8.1 % (0.0-13.0) 10/19/22 04:30 Eos % (Auto) 0.7 % (0.9-2.9) L 10/19/22 04:30 Baso % (Auto) 0.6 % (0.2-1.0) 10/19/22 04:30 Neut # (Auto) 6.2 x10^3/uL (2.2-4.8) H 10/19/22 04:30 Lymph # (Auto) 1.6 X10^3/uL (1.3-2.9) 10/19/22 04:30 [place] # (Auto) 0.7 x10^3/uL (0.3-0.8) 10/19/22 04:30 Eos # (Auto) 0.1 x10^3/uL (0.0-0.2) 10/19/22 04:30 Baso # (Auto) 0.1 X10^3/uL (0.0-0.1) 10/19/22 04:30 Absolute Nucleated RBC 0.0 /100WBC 10/19/22 04:30 Total Counted 100 10/15/22 16:51 Neutrophils % (Manual) 84 % (39-76) H 10/15/22 16:51 Band Neutrophils % 3 % (0-10) 10/15/22 16:51 Lymphocytes % (Manual) 10 % (13-43) L 10/15/22 16:51 Eosinophils % (Manual) 3 % (0-6) 10/15/22 16:51 Plt Morphology Comment Normal (NORMAL) 10/15/22 16:51 RBC Morphology Normal (NORMAL) 10/15/22 16:51 Sample Site [facility] 10/19/22 08:08 ABG pH 7.490 (7.35-7.45) H 10/19/22 08:08 ABG pCO2 33.0 mmHg (35.0-45.0) L 10/19/22 08:08 ABG pO2 158.0 mmHg (80.0-100.0) H 10/19/22 08:08 ABG HCO3 25.1 mmol/L (22-26) 10/19/22 08:08 ABG O2 Saturation 100.0 % (90-100) 10/19/22 08:08 ABG Base Excess 2.1 mmol/L (-2.0-2.0) H 10/19/22 08:08 Kishan Test Pos 10/19/22 08:08 A-a Gradient -50.0 mmHg 10/19/22 08:08 FiO2 21.0 10/19/22 08:08 Blood Gas Comments Pt breanna well eb 10/19/22 08:08 Sodium 137 mmol/L (136-145) 10/19/22 04:30 Corrected Sodium 138 mmol/L (136-145) 10/19/22 04:30 Potassium 3.9 mmol/L (3.5-5.1) 10/19/22 10:02 Chloride 101 mmol/L (98-107) 10/19/22 04:30 Carbon Dioxide 30.1 mmol/L (21-32) 10/19/22 04:30 BUN 6 mg/dL (7-18) L 10/19/22 04:30 Creatinine 0.75 mg/dL (0.70-1.30) 10/19/22 04:30 Est GFR (MDRD) Af Amer > 60 (>60) 10/19/22 04:30 Est GFR (MDRD) Non-Af > 60 (>60) 10/19/22 04:30 Glucose 134 mg/dL (65-99) H 10/19/22 04:30 POC Glucose (mg/dL) 130 mg/dL (65-99) H 10/19/22 14:24 Calcium 7.6 mg/dL (8.5-10.1) L 10/19/22 04:30 Corrected Calcium 8.2 mg/dL (8.5-10.1) L 10/19/22 04:30 Magnesium 1.5 mg/dL (2.0-2.9) L 10/19/22 04:30 Total Bilirubin 1.50 mg/dL (0.2-1.0) H 10/19/22 04:30 AST 68 Units/L (15-37) H 10/19/22 04:30 ALT 24 Units/L (12-78) 10/19/22 04:30 Alkaline Phosphatase 69 Units/L (46-116) 10/19/22 04:30 Total Protein 5.7 g/dL (6.4-8.2) L 10/19/22 04:30 Albumin 3.2 g/dL (3.4-5.0) L 10/19/22 04:30 Globulin 2.5 g/dL (2.5-4.5) 10/19/22 04:30 Albumin/Globulin Ratio 1.3 Ratio (1.1-2.1) 10/19/22 04:30 Lipase 46 Units/L (73-393) L 10/15/22 16:51 Specimen Type Clean catch urine 10/15/22 17:58 Urine Color Straw (YELLOW) 10/15/22 17:58 Urine Appearance Clear (CLEAR) 10/15/22 17:58 Urine pH 5.0 (5.0 - 8.0) 10/15/22 17:58 Ur Specific [place] 1.025 (1.000-1.030) 10/15/22 17:58 Urine Protein 3+ (NEGATIVE) 10/15/22 17:58 Urine Glucose (UA) 4+ (NEGATIVE) 10/15/22 17:58 Urine Ketones 4+ (NEGATIVE) 10/15/22 17:58 Urine Blood 2+ (NEGATIVE) 10/15/22 17:58 Urine Nitrite Negative (NEGATIVE) 10/15/22 17:58 Urine Bilirubin Negative (NEGATIVE) 10/15/22 17:58 Urine Urobilinogen Normal (NORMAL) 10/15/22 17:58 Ur Leukocyte Esterase Negative (NEGATIVE) 10/15/22 17:58 Urine RBC 0-2 /HPF (0-3) 10/15/22 17:58 Urine WBC None seen /HPF (0-5) 10/15/22 17:58 Ur Squamous Epith Cells Rare /HPF (NEGATIVE) 10/15/22 17:58 Urine Bacteria Negative /HPF (NEGATIVE) 10/15/22 17:58 Ur Culture Indicated? No/not indicated 10/15/22 17:58 Stl Occult Blood (IFOB) Negative (NEGATIVE) 10/15/22 17:58 Stool for White Cells Positive (NEGATIVE) A 10/15/22 17:58 Stl C. diff Tox B Gene Negative (NEGATIVE) 10/15/22 17:58 Stl C. diff [id number] Presumptive negative (NEGATIVE) 10/15/22 17:58 Acetone, Semi-Quant Small (NEGATIVE) H 10/19/22 13:58 Cryptosporid parvum Ag Negative (NEGATIVE) 10/15/22 17:58 Giardia lamblia Ag Negative (NEGATIVE) 10/15/22 17:58 Plan (1) Campylobacter diarrhea: Status: Acute Plan: IV Cipro. (2) Leucocytosis: Status: Acute Plan: Starting IV Cipro and Flagyl. Continue IV fluid. (3) Diabetic keto-acidosis: Status: Acute Plan: Continue insulin drip. I will also check ABG and serum acetone in t he a.m. (4) Vomiting and diarrhea: Status: Acute Plan: Patient is currently on Zofran. I will add as needed Phenergan also for improved nausea and vomiting. I am also adding IV Cipro and Flagyl. I will DC his Zithromax. I will add Compazine 10 mg IV every 6 hours as needed nausea and vomiting. (5) Hypernatremia: Status: Acute Plan: DC normal saline and change to half-normal saline 125 cc/h. (6) Hypokalemia: Status: Acute Plan: Correct hypokalemia with potassium replacement protocol. (7) Hypomagnesemia: Status: Acute Plan: Low magnesium with magnesium sulfate on the potassium replacement protocol
[2022-10-20] MEDS ORDERED: NS 1/2 1,000 ML IV 1,000 ML IV ONE ×2 (00:50→18:25)
[2022-10-20] MEDS: ZOFRAN INJ 4 MG VIAL IVP SCH ×4 (02:31→21:01)
[2022-10-20] MEDS: NS 1/2 1,000 ML IV 1,000 ML IV SCH ×4 (02:31→18:29)
[2022-10-20 04:50] LABS: BASOPHILS # (AUTO) 0.1 X10^3/uL (0.0-0.1); BASOPHILS % (AUTO) 1.1 % (0.2-1.0); EOSINOPHILS # (AUTO) 0.2 x10^3/uL (0.0-0.2); EOSINOPHILS % (AUTO) 2.1 % (0.9-2.9); HEMATOCRIT 43.2 % (42.0-54.0); HEMOGLOBIN 14.9 g/dL (13.5-18.0); LYMPHOCYTES % (AUTO) 36.6 % (21.0-51.0); MEAN CORPUSCULAR HEMOGLOBIN 30.2 pg (27.0-34.0); MEAN CORPUSCULAR HGB CONC 34.6 g/dL (33.0-35.0); MEAN CORPUSCULAR VOLUME 87.3 fL (80.0-100.0); MEAN PLATELET VOLUME 9.2 fL (7.4-11.0); MONOCYTES # (AUTO) 0.6 x10^3/uL (0.3-0.8); MONOCYTES % (AUTO) 7.3 % (0.0-13.0); NEUTROPHILS # (AUTO) 4.3 x10^3/uL (2.2-4.8); NEUTROPHILS % (AUTO) 52.9 % (42.0-75.0); RED BLOOD COUNT 4.95 X10^6/uL (4.7-6.0); RED CELL DISTRIBUTION WIDTH 14.2 % (11.6-16.5); WHITE BLOOD COUNT 8.2 X10^3/uL (3.6-10.0)
[2022-10-20 05:02] LABS: ALANINE AMINOTRANSFERASE 21 Units/L (12-78); ALBUMIN 3.1 g/dL (3.4-5.0); ALKALINE PHOSPHATASE 67 Units/L (46-116); ASPARTATE AMINO TRANSFERASE 42 Units/L (15-37); BLOOD UREA NITROGEN 7 mg/dL (7-18); CALCIUM 7.5 mg/dL (8.5-10.1); CARBON DIOXIDE 29.9 mmol/L (21-32); CHLORIDE 99 mmol/L (98-107); COR CA(FOR HYPOALB) 8.2 mg/dL (8.5-10.1); COR NA(FOR HYPERGLY) 139 mmol/L (136-145); CREATININE 0.81 mg/dL (0.70-1.30); SODIUM 138 mmol/L (136-145); TOTAL PROTEIN 5.5 g/dL (6.4-8.2); eGFR NON BLACK RACES > 60 (>60)
[2022-10-20] MEDS: FLAGYL IV PREMIX 500 MG BAG 500 MG/100 ML BAG IV SCH ×3 (05:29→21:15)
[2022-10-20] MEDS: MAGNESIUM SULFATE 1 GRAM/100 mL PREMIX 1 G/100 ML BAG IV PRN ×2 (06:44→07:49)
[2022-10-20] MEDS: LOPRESSOR INJ 5 MG AMP IVP SCH ×2 (08:40→23:40)
[2022-10-20] MEDS: LEVAQUIN PREMIX IV 500 MG 500 MG/100 ML BAG IV SCH (08:45)
[2022-10-20] MEDS ORDERED: TOPROL XL PO ONE ×3 (10:28→13:08)
[2022-10-20] MEDS ORDERED: NovoLIN R (or HumuLIN R) ONE (11:26)
[2022-10-20] MEDS: PHENERGAN INJ 25 MG IM PRN (11:30)
[2022-10-20] MEDS: NovoLIN R (or HumuLIN R) SC PRN (11:50)
[2022-10-20] MEDS: MYXREDLIN 100 UNIT/100 ML BAG 100 UNIT/100 ML PLAST..BAG IV PRN ×2 (13:57→19:35)
[2022-10-20] MEDS: OTBSDRIP XX SCH ×10 (13:58→23:30)
--- NOTE | 2022-10-20 15:49 | PCM.PROG ---
Progress Note Progress Note for Day of Date of Exam: 10/20/22 Subjective Subjective: Patient is sitting up in a chair beside his bed this morning. He is playing video games on his computer. He reports that he feels much better and has not had any further nausea or vomiting. It is noted his serum acetone was still small amount. However he is asymptomatic at this time. We initially were going to let him go home but after he received his a.m. dose of Levaquin he developed tachycardia and not long after that he got nauseated and started throwing up again. Because of that we like to keep him and restart his insulin drip per protocol for DKA and keep him at least until tomorrow to see if his acetone is negative at that time. I will start him on p.o. metoprolol succinate 50 mg daily for his tachycardia. Past Medical Family Social History Allergies: Allergies ibuprofen [From Motrin] Allergy (Verified 10/01/22 05:42) morphine Allergy (Verified 10/01/22 05:42) peanut Allergy (Verified 10/01/22 05:42) Penicillins Allergy (Verified 10/01/22 05:42) Review of Systems ROS: Changes notes (describe) (Patient has continued nausea, vomiting and diarrhea.) Vital Signs and I&O's Vital Signs: Temperature 98.8 F Pulse Rate 103 Respiratory Rate 23 Blood Pressure [Right Arm] 127/60 Blood Pressure 137/91 O2 Sat by Pulse Oximetry 100 Intake and Output: Intake & Output 10/18/22 10/19/22 10/20/22 10/21/22 11:59 11:59 11:59 11:59 Intake Total 3540 / 3540 3067.1 / 3067.1 4890.0 / 4890.0 Output Total 500 / 500 1400 / 1400 680 / 680 Balance 3040 / 3040 1667.1 / 1667.1 4210.0 / 4210.0 Physical Exam Oriented: Other (Ill-appearing) Eyes: Normal Ear: Normal Nose: Normal Throat: Normal Respiratory: Normal Cardiovascular: Normal Auscultation: Bowel Sounds: Increased Tenderness: Normal Skin: Normal Musculoskeletal: Normal Psychiatric: Normal Mood Description: Calm Affect: Flat Speech Pattern: Clear and Appropriate Laboratory and Diagnostics Result Diagrams: 10/20/22 04:04 10/20/22 09:00 Labs: 10/15/22 17:58 Stool Stool Culture - Final 10/15/22 17:58 Stool - Final Laboratory WBC 8.2 X10^3/uL (3.6-10.0) 10/20/22 04:04 RBC 4.95 X10^6/uL (4.7-6.0) 10/20/22 04:04 Hgb 14.9 g/dL (13.5-18.0) 10/20/22 04:04 Hct 43.2 % (42.0-54.0) 10/20/22 04:04 MCV 87.3 fL (80.0-100.0) 10/20/22 04:04 MCH 30.2 pg (27.0-34.0) 10/20/22 04:04 MCHC 34.6 g/dL (33.0-35.0) 10/20/22 04:04 RDW 14.2 % (11.6-16.5) 10/20/22 04:04 Plt Count 240 X10^3/uL (150.0-450.0) 10/20/22 04:04 Plt Count Comment Adequate (ADEQUATE) 10/15/22 16:51 MPV 9.2 fL (7.4-11.0) 10/20/22 04:04 Neut % (Auto) 52.9 % (42.0-75.0) 10/20/22 04:04 Lymph % (Auto) 36.6 % (21.0-51.0) 10/20/22 04:04 [place] % (Auto) 7.3 % (0.0-13.0) 10/20/22 04:04 Eos % (Auto) 2.1 % (0.9-2.9) 10/20/22 04:04 Baso % (Auto) 1.1 % (0.2-1.0) H 10/20/22 04:04 Neut # (Auto) 4.3 x10^3/uL (2.2-4.8) 10/20/22 04:04 Lymph # (Auto) 3.0 X10^3/uL (1.3-2.9) H 10/20/22 04:04 [place] # (Auto) 0.6 x10^3/uL (0.3-0.8) 10/20/22 04:04 Eos # (Auto) 0.2 x10^3/uL (0.0-0.2) 10/20/22 04:04 Baso # (Auto) 0.1 X10^3/uL (0.0-0.1) 10/20/22 04:04 Absolute Nucleated RBC 0.1 /100WBC 10/20/22 04:04 Total Counted 100 10/15/22 16:51 Neutrophils % (Manual) 84 % (39-76) H 10/15/22 16:51 Band Neutrophils % 3 % (0-10) 10/15/22 16:51 Lymphocytes % (Manual) 10 % (13-43) L 10/15/22 16:51 Eosinophils % (Manual) 3 % (0-6) 10/15/22 16:51 Plt Morphology Comment Normal (NORMAL) 10/15/22 16:51 RBC Morphology Normal (NORMAL) 10/15/22 16:51 Sample Site Rra 10/19/22 08:08 ABG pH 7.490 (7.35-7.45) H 10/19/22 08:08 ABG pCO2 33.0 mmHg (35.0-45.0) L 10/19/22 08:08 ABG pO2 158.0 mmHg (80.0-100.0) H 10/19/22 08:08 ABG HCO3 25.1 mmol/L (22-26) 10/19/22 08:08 ABG O2 Saturation 100.0 % (90-100) 10/19/22 08:08 ABG Base Excess 2.1 mmol/L (-2.0-2.0) H 10/19/22 08:08 Kishan Test Pos 10/19/22 08:08 A-a Gradient -50.0 mmHg 10/19/22 08:08 FiO2 21.0 10/19/22 08:08 Blood Gas Comments Pt breanna well eb 10/19/22 08:08 Sodium 138 mmol/L (136-145) 10/20/22 04:04 Corrected Sodium 139 mmol/L (136-145) 10/20/22 04:04 Potassium 3.9 mmol/L (3.5-5.1) 10/20/22 09:00 Chloride 99 mmol/L (98-107) 10/20/22 04:04 Carbon Dioxide 29.9 mmol/L (21-32) 10/20/22 04:04 BUN 7 mg/dL (7-18) 10/20/22 04:04 Creatinine 0.81 mg/dL (0.70-1.30) 10/20/22 04:04 Est GFR (MDRD) Af Amer > 60 (>60) 10/20/22 04:04 Est GFR (MDRD) Non-Af > 60 (>60) 10/20/22 04:04 Glucose 134 mg/dL (65-99) H 10/20/22 04:04 POC Glucose (mg/dL) 151 mg/dL (65-99) H 10/20/22 15:05 Calcium 7.5 mg/dL (8.5-10.1) L 10/20/22 04:04 Corrected Calcium 8.2 mg/dL (8.5-10.1) L 10/20/22 04:04 Magnesium 1.6 mg/dL (2.0-2.9) L 10/20/22 04:04 Total Bilirubin 0.90 mg/dL (0.2-1.0) 10/20/22 04:04 AST 42 Units/L (15-37) H 10/20/22 04:04 ALT 21 Units/L (12-78) 10/20/22 04:04 Alkaline Phosphatase 67 Units/L (46-116) 10/20/22 04:04 Total Protein 5.5 g/dL (6.4-8.2) L 10/20/22 04:04 Albumin 3.1 g/dL (3.4-5.0) L 10/20/22 04:04 Globulin 2.4 g/dL (2.5-4.5) L 10/20/22 04:04 Albumin/Globulin Ratio 1.3 Ratio (1.1-2.1) 10/20/22 04:04 Lipase 46 Units/L (73-393) L 10/15/22 16:51 Specimen Type Clean catch urine 10/15/22 17:58 Urine Color Straw (YELLOW) 10/15/22 17:58 Urine Appearance Clear (CLEAR) 10/15/22 17:58 Urine pH 5.0 (5.0 - 8.0) 10/15/22 17:58 Ur Specific [place] 1.025 (1.000-1.030) 10/15/22 17:58 Urine Protein 3+ (NEGATIVE) 10/15/22 17:58 Urine Glucose (UA) 4+ (NEGATIVE) 10/15/22 17:58 Urine Ketones 4+ (NEGATIVE) 10/15/22 17:58 Urine Blood 2+ (NEGATIVE) 10/15/22 17:58 Urine Nitrite Negative (NEGATIVE) 10/15/22 17:58 Urine Bilirubin Negative (NEGATIVE) 10/15/22 17:58 Urine Urobilinogen Normal (NORMAL) 10/15/22 17:58 Ur Leukocyte Esterase Negative (NEGATIVE) 10/15/22 17:58 Urine RBC 0-2 /HPF (0-3) 10/15/22 17:58 Urine WBC None seen /HPF (0-5) 10/15/22 17:58 Ur Squamous Epith Cells Rare /HPF (NEGATIVE) 10/15/22 17:58 Urine Bacteria Negative /HPF (NEGATIVE) 10/15/22 17:58 Ur Culture Indicated? No/not indicated 10/15/22 17:58 Stl Occult Blood (IFOB) Negative (NEGATIVE) 10/15/22 17:58 Stool for White Cells Positive (NEGATIVE) A 10/15/22 17:58 Stl C. diff Tox B Gene Negative (NEGATIVE) 10/15/22 17:58 Stl C. diff [id number] Presumptive negative (NEGATIVE) 10/15/22 17:58 Acetone, Semi-Quant Small (NEGATIVE) H 10/20/22 04:04 Cryptosporid parvum Ag Negative (NEGATIVE) 10/15/22 17:58 Giardia lamblia Ag Negative (NEGATIVE) 10/15/22 17:58 Plan (1) Campylobacter diarrhea: Status: Acute Plan: IV Cipro. (2) Leucocytosis: Status: Acute Plan: Starting IV Cipro and Flagyl. Continue IV fluid. (3) Diabetic keto-acidosis: Status: Acute Plan: Continue insulin drip. I will also check ABG and serum acetone in the a.m. (4) Vomiting and diarrhea: Status: Acute Plan: Patient is currently on Zofran. I will add as needed Phenergan also for improved nausea and vomiting. I am also adding IV Cipro and Flagyl. I will DC his Zithromax. I will add Compazine 10 mg IV every 6 hours as needed nausea and vomiting. (5) Hypernatremia: Status: Acute Plan: DC normal saline and change to half-normal saline 125 cc/h. (6) Hypokalemia: Status: Acute Plan: Correct hypokalemia with potassium replacement protocol. (7) Hypomagnesemia: Status: Acute Plan: Low magnesium with magnesium sulfate on the potassium replacement protocol
[2022-10-21] MEDS: OTBSDRIP XX SCH ×11 (00:30→10:05)
[2022-10-21] MEDS: ZOFRAN INJ 4 MG VIAL IVP SCH ×4 (02:05→21:14)
[2022-10-21] MEDS: PHENERGAN INJ 25 MG IM PRN (02:47)
[2022-10-21] MEDS ORDERED: NS 1/2 1,000 ML IV 1,000 ML IV ONE ×2 (03:32→17:25)
[2022-10-21] MEDS: NS 1/2 1,000 ML IV 1,000 ML IV SCH ×3 (03:38→17:33)
[2022-10-21] MEDS ORDERED: COMPAZINE INJ ONE (03:39)
[2022-10-21] MEDS: COMPAZINE INJ IVP PRN ×2 (03:43→16:03)
[2022-10-21 05:08] LABS: BASOPHILS # (AUTO) 0.1 X10^3/uL (0.0-0.1); BASOPHILS % (AUTO) 0.8 % (0.2-1.0); EOSINOPHILS # (AUTO) 0.2 x10^3/uL (0.0-0.2); EOSINOPHILS % (AUTO) 2.1 % (0.9-2.9); HEMATOCRIT 41.9 % (42.0-54.0); HEMOGLOBIN 14.1 g/dL (13.5-18.0); LYMPHOCYTES # (AUTO) 2.2 X10^3/uL (1.3-2.9); LYMPHOCYTES % (AUTO) 27.8 % (21.0-51.0); MEAN CORPUSCULAR HEMOGLOBIN 29.7 pg (27.0-34.0); MEAN CORPUSCULAR HGB CONC 33.8 g/dL (33.0-35.0); MEAN CORPUSCULAR VOLUME 87.8 fL (80.0-100.0); MEAN PLATELET VOLUME 9.5 fL (7.4-11.0); MONOCYTES # (AUTO) 0.5 x10^3/uL (0.3-0.8); MONOCYTES % (AUTO) 6.7 % (0.0-13.0); NEUTROPHILS % (AUTO) 62.6 % (42.0-75.0); RED BLOOD COUNT 4.77 X10^6/uL (4.7-6.0); RED CELL DISTRIBUTION WIDTH 14.1 % (11.6-16.5)
[2022-10-21] MEDS: FLAGYL IV PREMIX 500 MG BAG 500 MG/100 ML BAG IV SCH ×3 (05:21→21:14)
[2022-10-21 05:28] LABS: ALANINE AMINOTRANSFERASE 25 Units/L (12-78); ALBUMIN 3.1 g/dL (3.4-5.0); ALKALINE PHOSPHATASE 61 Units/L (46-116); ASPARTATE AMINO TRANSFERASE 58 Units/L (15-37); BLOOD UREA NITROGEN 9 mg/dL (7-18); CALCIUM 7.7 mg/dL (8.5-10.1); CARBON DIOXIDE 25.3 mmol/L (21-32); CHLORIDE 100 mmol/L (98-107); COR CA(FOR HYPOALB) 8.4 mg/dL (8.5-10.1); COR NA(FOR HYPERGLY) 139 mmol/L (136-145); CREATININE 0.91 mg/dL (0.70-1.30); SODIUM 138 mmol/L (136-145); TOTAL PROTEIN 5.6 g/dL (6.4-8.2); eGFR NON BLACK RACES > 60 (>60)
[2022-10-21 05:52] LABS: SERUM ACETONE SMALL (NEGATIVE)
[2022-10-21] MEDS: MAGNESIUM SULFATE 1 GRAM/100 mL PREMIX 1 G/100 ML BAG IV PRN ×2 (06:33→10:05)
[2022-10-21] MEDS: LOPRESSOR INJ 5 MG AMP IVP SCH ×2 (08:03→21:13)
[2022-10-21 08:28] LABS: ABG BASE EXCESS -2.7 mmol/L (-2.0-2.0); ABG HCO3 21.8 mmol/L (22-26)
[2022-10-21 08:30] LABS: ABG ALLEN TEST POS
[2022-10-21] MEDS: K-RIDER 10 MEQ/NS 100 ML 10 MEQ/100 ML BAG IV PRN (11:11)
[2022-10-21] MEDS: NovoLIN R (or HumuLIN R) SC PRN ×3 (14:29→21:15)
--- NOTE | 2022-10-21 16:44 | PCM.PROG ---
Progress Note Progress Note for Day of Date of Exam: 10/21/22 Subjective Subjective: The patient is in bed this morning. He reports he is feeling better since yesterday. This morning he is still positive for small amount of serum acetone. We stopped the insulin drip this morning. We changing over to the slight scale regular insulin per protocol and started a on Levemir 15 units at bedtime for tonight. He did have 1 episode of nausea vomiting after lunch today. We repeated his serum acetone at 2:00 today and still showing small amount of acetone. He has been doing fairly well except for one episode yesterday and 1 episode today of vomiting. His sugars have been well controlled and he is not having tachycardia today. He has not had any further diarrhea. He is eating tolerating the food without any problems. We will plan on discharge again tomorrow morning and we will recheck serum acetone in the morning. His potassium and magnesium were low which will correct today. Past Medical Family Social History Allergies: Allergies ibuprofen [From Motrin] Allergy (Verified 10/01/22 05:42) morphine Allergy (Verified 10/01/22 05:42) peanut Allergy (Verified 10/01/22 05:42) Penicillins Allergy (Verified 10/01/22 05:42) Review of Systems ROS: Changes notes (describe) (Patient has continued nausea, vomiting and kristi rrhea.) Vital Signs and I&O's Vital Signs: Temperature 98.9 F Pulse Rate 96 Respiratory Rate 30 Blood Pressure [Right Arm] 127/60 Blood Pressure 118/76 O2 Sat by Pulse Oximetry 100 Intake and Output: Intake & Output 10/19/22 10/20/22 10/21/22 10/22/22 11:59 11:59 11:59 11:59 Intake Total 3067.1 / 3067.1 4890.0 / 4890.0 3372 / 3372 1330 / 1330 Output Total 1400 / 1400 680 / 680 2301 / 2301 Balance 1667.1 / 1667.1 4210.0 / 4210.0 1071 / 1071 1330 / 1330 Physical Exam Oriented: Other (Ill-appearing) Eyes: Normal Ear: Normal Nose: Normal Throat: Normal Respiratory: Normal Cardiovascular: Normal Auscultation: Bowel Sounds: Increased Tenderness: Normal Skin: Normal Musculoskeletal: Normal Psychiatric: Normal Mood Description: Calm Affect: Flat Speech Pattern: Clear and Appropriate Laboratory and Diagnostics Result Diagrams: 10/21/22 04:00 10/21/22 04:00 Labs: 10/15/22 17:58 Stool Stool Culture - Final 10/15/22 17:58 Stool - Final Laboratory WBC 8.0 X10^3/uL (3.6-10.0) 10/21/22 04:00 RBC 4.77 X10^6/uL (4.7-6.0) 10/21/22 04:00 Hgb 14.1 g/dL (13.5-18.0) 10/21/22 04:00 Hct 41.9 % (42.0-54.0) L 10/21/22 04:00 MCV 87.8 fL (80.0-100.0) 10/21/22 04:00 MCH 29.7 pg (27.0-34.0) 10/21/22 04:00 MCHC 33.8 g/dL (33.0-35.0) 10/21/22 04:00 RDW 14.1 % (11.6-16.5) 10/21/22 04:00 Plt Count 256 X10^3/uL (150.0-450.0) 10/21/22 04:00 Plt Count Comment Adequate (ADEQUATE) 10/15/22 16:51 MPV 9.5 fL (7.4-11.0) 10/21/22 04:00 Neut % (Auto) 62.6 % (42.0-75.0) 10/21/22 04:00 Lymph % (Auto) 27.8 % (21.0-51.0) 10/21/22 04:00 [place] % (Auto) 6.7 % (0.0-13.0) 10/21/22 04:00 Eos % (Auto) 2.1 % (0.9-2.9) 10/21/22 04:00 Baso % (Auto) 0.8 % (0.2-1.0) 10/21/22 04:00 Neut # (Auto) 5.0 x10^3/uL (2.2-4.8) H 10/21/22 04:00 Lymph # (Auto) 2.2 X10^3/uL (1.3-2.9) 10/21/22 04:00 [place] # (Auto) 0.5 x10^3/uL (0.3-0.8) 10/21/22 04:00 Eos # (Auto) 0.2 x10^3/uL (0.0-0.2) 10/21/22 04:00 Baso # (Auto) 0.1 X10^3/uL (0.0-0.1) 10/21/22 04:00 Absolute Nucleated RBC 0.1 /100WBC 10/21/22 04:00 Total Counted 100 10/15/22 16:51 Neutrophils % (Manual) 84 % (39-76) H 10/15/22 16:51 Band Neutrophils % 3 % (0-10) 10/15/22 16:51 Lymphocytes % (Manual) 10 % (13-43) L 10/15/22 16:51 Eosinophils % (Manual) 3 % (0-6) 10/15/22 16:51 Plt Morphology Comment Normal (NORMAL) 10/15/22 16:51 RBC Morphology Normal (NORMAL) 10/15/22 16:51 Sample Site Rr 10/21/22 08:23 ABG pH 7.390 (7.35-7.45) 10/21/22 08:23 ABG pCO2 36.0 mmHg (35.0-45.0) 10/21/22 08:23 ABG pO2 72.0 mmHg (80.0-100.0) L 10/21/22 08:23 ABG HCO3 21.8 mmol/L (22-26) L 10/21/22 08:23 ABG O2 Saturation 94.0 % (90-100) 10/21/22 08:23 ABG Base Excess -2.7 mmol/L (-2.0-2.0) L 10/21/22 08:23 Kishan Test Pos 10/21/22 08:23 A-a Gradient 33.0 mmHg 10/21/22 08:23 FiO2 21.0 10/21/22 08:23 Blood Gas Comments Pt breanna well cdn 10/21/22 08:23 Sodium 138 mmol/L (136-145) 10/21/22 04:00 Corrected Sodium 139 mmol/L (136-145) 10/21/22 04:00 Potassium 3.1 mmol/L (3.5-5.1) L 10/21/22 04:00 Chloride 100 mmol/L (98-107) 10/21/22 04:00 Carbon Dioxide 25.3 mmol/L (21-32) 10/21/22 04:00 BUN 9 mg/dL (7-18) 10/21/22 04:00 Creatinine 0.91 mg/dL (0.70-1.30) 10/21/22 04:00 Est GFR (MDRD) Af Amer > 60 (>60) 10/21/22 04:00 Est GFR (MDRD) Non-Af > 60 (>60) 10/21/22 04:00 Glucose 134 mg/dL (65-99) H 10/21/22 04:00 POC Glucose (mg/dL) 220 mg/dL (65-99) H 10/21/22 15:54 Calcium 7.7 mg/dL (8.5-10.1) L 10/21/22 04:00 Corrected Calcium 8.4 mg/dL (8.5-10.1) L 10/21/22 04:00 Magnesium 1.7 mg/dL (2.0-2.9) L 10/21/22 04:00 Total Bilirubin 0.70 mg/dL (0.2-1.0) 10/21/22 04:00 AST 58 Units/L (15-37) H 10/21/22 04:00 ALT 25 Units/L (12-78) 10/21/22 04:00 Alkaline Phosphatase 61 Units/L (46-116) 10/21/22 04:00 Total Protein 5.6 g/dL (6.4-8.2) L 10/21/22 04:00 Albumin 3.1 g/dL (3.4-5.0) L 10/21/22 04:00 Globulin 2.5 g/dL (2.5-4.5) 10/21/22 04:00 Albumin/Globulin Ratio 1.2 Ratio (1.1-2.1) 10/21/22 04:00 Lipase 46 Units/L (73-393) L 10/15/22 16:51 Specimen Type Clean catch urine 10/15/22 17:58 Urine Color Straw (YELLOW) 10/15/22 17:58 Urine Appearance Clear (CLEAR) 10/15/22 17:58 Urine pH 5.0 (5.0 - 8.0) 10/15/22 17:58 Ur Specific [place] 1.025 (1.000-1.030) 10/15/22 17:58 Urine Protein 3+ (NEGATIVE) 10/15/22 17:58 Urine Glucose (UA) 4+ (NEGATIVE) 10/15/22 17:58 Urine Ketones 4+ (NEGATIVE) 10/15/22 17:58 Urine Blood 2+ (NEGATIVE) 10/15/22 17:58 Urine Nitrite Negative (NEGATIVE) 10/15/22 17:58 Urine Bilirubin Negative (NEGATIVE) 10/15/22 17:58 Urine Urobilinogen Normal (NORMAL) 10/15/22 17:58 Ur Leukocyte Esterase Negative (NEGATIVE) 10/15/22 17:58 Urine RBC 0-2 /HPF (0-3) 10/15/22 17:58 Urine WBC None seen /HPF (0-5) 10/15/22 17:58 Ur Squamous Epith Cells Rare /HPF (NEGATIVE) 10/15/22 17:58 Urine Bacteria Negative /HPF (NEGATIVE) 10/15/22 17:58 Ur Culture Indicated? No/not indicated 10/15/22 17:58 Stl Occult Blood (IFOB) Negative (NEGATIVE) 10/15/22 17:58 Stool for White Cells Positive (NEGATIVE) A 10/15/22 17:58 Stl C. diff Tox B Gene Negative (NEGATIVE) 10/15/22 17:58 Stl C. diff [id number] Presumptive negative (NEGATIVE) 10/15/22 17:58 Acetone, Semi-Quant Small (NEGATIVE) H 10/21/22 14:00 Cryptosporid parvum Ag Negative (NEGATIVE) 10/15/22 17:58 Giardia lamblia Ag Negative (NEGATIVE) 10/15/22 17:58 Plan (1) Campylobacter diarrhea: Status: Acute Plan: IV Cipro. (2) Leucocytosis: Status: Acute Plan: Starting IV Cipro and Flagyl. Continue IV fluid. (3) Diabetic keto-acidosis: Status: Acute Plan: Continue insulin drip. I will also check ABG and serum acetone in the a.m. (4) Vomiting and diarrhea: Status: Acute Plan: Patient is currently on Zofran. I will add as needed Phenergan also for improved nausea and vomiting. I am also adding IV Cipro and Flagyl. I will DC his Zithromax. I will add Compazine 10 mg IV every 6 hours as needed nausea and vomiting. (5) Hypernatremia: Status: Acute Plan: DC normal saline and change to half-normal saline 125 cc/h. (6) Hypokalemia: Status: Acute Plan: Correct hypokalemia with potassium replacement protocol. (7) Hypomagnesemia: Status: Acute Plan: Low magnesium with magnesium sulfate on the potassium replacement protocol
[2022-10-21] MEDS ORDERED: SNACK - Diabetic Appropriate PO SCH (20:00)
[2022-10-21] MEDS ORDERED: LEVEMIR SC SCH (21:00)
[2022-10-21] MEDS ORDERED: MAALOX or MYLANTA PO PRN (23:01)
[2022-10-22] MEDS ORDERED: NS 1/2 1,000 ML IV 1,000 ML IV ONE (02:28)
[2022-10-22] MEDS: NS 1/2 1,000 ML IV 1,000 ML IV SCH (02:37)
[2022-10-22] MEDS: ZOFRAN INJ 4 MG VIAL IVP SCH (03:15)
[2022-10-22 05:10] LABS: BASOPHILS # (AUTO) 0.2 X10^3/uL (0.0-0.1); BASOPHILS % (AUTO) 1.4 % (0.2-1.0); EOSINOPHILS # (AUTO) 0.2 x10^3/uL (0.0-0.2); EOSINOPHILS % (AUTO) 1.2 % (0.9-2.9); HEMATOCRIT 44.8 % (42.0-54.0); HEMOGLOBIN 15.6 g/dL (13.5-18.0); LYMPHOCYTES # (AUTO) 3.7 X10^3/uL (1.3-2.9); LYMPHOCYTES % (AUTO) 24.4 % (21.0-51.0); MEAN CORPUSCULAR HEMOGLOBIN 30.2 pg (27.0-34.0); MEAN CORPUSCULAR HGB CONC 34.8 g/dL (33.0-35.0); MEAN CORPUSCULAR VOLUME 86.6 fL (80.0-100.0); MEAN PLATELET VOLUME 10.2 fL (7.4-11.0); MONOCYTES # (AUTO) 0.8 x10^3/uL (0.3-0.8); MONOCYTES % (AUTO) 5.6 % (0.0-13.0); NEUTROPHILS # (AUTO) 10.1 x10^3/uL (2.2-4.8); NEUTROPHILS % (AUTO) 67.4 % (42.0-75.0); RED BLOOD COUNT 5.18 X10^6/uL (4.7-6.0); RED CELL DISTRIBUTION WIDTH 14.2 % (11.6-16.5)
[2022-10-22] MEDS ORDERED: COMPAZINE INJ ONE (05:12)
[2022-10-22 05:26] LABS: ALANINE AMINOTRANSFERASE 33 Units/L (12-78); ALBUMIN 3.8 g/dL (3.4-5.0); ALKALINE PHOSPHATASE 68 Units/L (46-116); ASPARTATE AMINO TRANSFERASE 58 Units/L (15-37); BLOOD UREA NITROGEN 7 mg/dL (7-18); CALCIUM 7.9 mg/dL (8.5-10.1); CARBON DIOXIDE 26.6 mmol/L (21-32); CHLORIDE 100 mmol/L (98-107); CREATININE 0.98 mg/dL (0.70-1.30); MAGNESIUM 1.5 mg/dL (2.0-2.9); SODIUM 141 mmol/L (136-145); TOTAL PROTEIN 6.4 g/dL (6.4-8.2); eGFR NON BLACK RACES > 60 (>60)
[2022-10-22] MEDS: FLAGYL IV PREMIX 500 MG BAG 500 MG/100 ML BAG IV SCH (05:56)
[2022-10-22] MEDS ORDERED: COMPAZINE INJ IVP ONE (06:00)
[2022-10-22 09:03] VITALS: BP 138/85
== END 2022-10-22 08:45 | disposition left against medical advice (07) | DRG 638 ==
LOC: ICU 16:37 → ER 16:37 → ICU 22:55
PROVIDERS: ADMIT Family Medicine; ATTEND Family Medicine
DX: E87.6 Hypokalemia; F41.8 Other specified anxiety disorders; E83.42 Hypomagnesemia; E87.0 Hyperosmolality and hypernatremia; E10.10 Type 1 diabetes mellitus with ketoacidosis without coma; Z53.29 Procedure and treatment not carried out because of patient's decision for other reasons; R00.0 Tachycardia, unspecified; A04.5 Campylobacter enteritis

== ENCOUNTER 2022-12-04 14:03 | Inpatient (IN) ==
[2022-12-04] MEDS ORDERED: NS 1,000 ML IV 1,000 ML ONE ×2 (15:19→16:39)
[2022-12-04] MEDS ORDERED: ZOFRAN INJ 4 MG VIAL ONE ×2 (15:19→16:47)
[2022-12-04] MEDS ORDERED: NS 1,000 ML IV 1,000 ML IV ONE (15:20)
[2022-12-04] MEDS ORDERED: ZOFRAN INJ 4 MG VIAL IVP ONE ×2 (15:20→16:45)
--- NOTE | 2022-12-04 15:20 | DR.DIARMA ---
HPI Time seen Time Seen by Provider: 12/04/22 15:19 PCP Primary Care Physician: TIM THORNTON E.GA HC HPI Comment HPI Comment: PATIENT IS 27YR OLD MALE IN WITH DM IN ER WITH NAUSEA, VOMITING AND DIARRHEA SINCE THIS MORNING. KNOWN DIABETIC. BLOOD GLUCOSE WAS ELEVATED AND TOOK 5 UNITS OF REGULAR INSULIN AND BLOOD GLUCOSE WENT TO 200S. RANK ALCOHOLL LAST NIGHT. Complaint Chief Complaint:: PT PRESENTS W/ N/V/D STARTED THIS MORNING. HE STATES HE DRANK A LITTLE ALCOHOL LAST NIGHT AND HE USUALLY DOESN'T DRINK MUCH ALCOHOL. HAS HAD X4 DIARRHEA Self Treatment fo Chief Complaint: HAS TAKEN 5 U INSULIN THIS MONING FOR BS IN 200S AFTER TAKING INSULIN COVID-19 Coronavirus risk:travel/contact w/high risk person: No Has patient experienced Coronavirus symptoms: No Source History Provided: Patient and Significant Other Mode of Arrival Mode of Arrival: Ambulatory Timing Onset of Chief Complaint: 12/04/22 PMH PMH Past Medical History: Yes Past Medical History: Anxiety, Depression and Diabetes Past Medical History Comment: CELIAC DISEASE; RECENTLY INPT FOR DKA Past Surgical History: Yes Surgical History: Ortho Surgery Family History History of Family Medical Conditions: Yes Family Medical History: Diabetes Mellitus, [place], Coronary Artery Disease, Heart Failure and Sudden Cardiac Social History Does patient currently use any type of tobacco product: No Have you used tobacco products in the last 12 months: No Type of Tobacco Use: None Does any household member use tobacco: No Alcohol Use: Rarely Do you use any recreational Drugs:: No Lives With: Spouse and Family Lives Where: Home Travel Risk Coronavirus risk:travel/contact w/high risk person: No Has patient experienced Coronavirus symptoms: No Infectious screening In the last 2 months have you had wt loss of >10#?: NO Have you had fever, night sweats or hemotysis?: No Have you traveled outside the country in the last 6 months?: No Isolation: Contact ROS Review of Systems Constitutional: Weakness and Fatigue; negative Fever Eyes: No Symptoms Reported ENTM: No Symptoms Reported; negative Nose Discharge or Nose Congestion Respiratoy: No Symptoms Reported; negative Moist Cough or Short of Breath Cardiovascular: Palpitations; negative Chest Pain or Edema Gastrointestinal/Abdominal: Diarrhea, Nausea and Vomiting Genitourinary: No Symptoms Reported; negative Dysuria Neurological: Weakness and Dizziness; negative Headache Musculoskeletal: No Symptoms Reported; negative Muscle Pain Integumentary: No Symptoms Reported Hematologic/Lymphatic: No Symptoms Reported Endocrine: No Symptoms Reported Psychiatric: No Symptoms Reported All Other Systems: Reviewed and Negative PE Vital Signs Vitals: Temperature 98.2 F Pulse Rate [Left Radial] 100 Pulse Rate 89 Respiratory Rate 20 Blood Pressure [Right Arm] 119/54 Blood Pressure 134/87 O2 Sat by Pulse Oximetry 96 General Limitations: No Limitations General Appearance: Alert and In No Apparent Distress Head Head Exam: Normal Inspection Eyes Eye exam: Normal Appearance; negative Scleral Icterus or Conjunctival Injection ENT ENT Exam: Normal Exam, Normal Oropharynx, Normal External Ear Exam and TM's Normal Bilaterally Neck Neck Exam: Normal Inspection and Trachea Midline; negative Tenderness Chest Chest Inspection: Normal Inspection and Symmetric Chest Wall Rise; negative Tenderness Respiratory Respiratory Exam: Normal Lung Sounds Bilat; negative Accessory Muscle Use, Chest Wall Tenderness or Respiratory Distress Cardiovascular Cardiovascular Exam: Regular Rate, Normal Rhythm and Normal Heart Sounds; negative Systolic Murmur or Diastolic Murmur Abdominal Exam Abdominal Exam: Normal Inspection, Normal Bowel Sounds, Soft and Tenderness Abdominal Tenderness: Diffuse and Moderate Rectal Rectal: Deferred Stool Characteristics: Liquid and Green Genitourinary Scrotum: Deferred Hernia: Normal Prostate: Deferred Extremeties Extremities Exam: Normal Inspection and Normal Capillary Refill Back Back Exam: Normal Inspection; negative (R) CVA Tenderness or (L) CVA Tenderness Neurologic Neurological Exam: Alert and Oriented X3; negative Motor Sensory Deficit Psychiatric Psychiatric Exam: Normal Affect and Normal Mood Skin Skin Exam: Dry MDM Differential Diagnosis Differential Diagnosis: Diarrhea Bacterial, Diarrhea Parasitic, Diarrhea Viral, Diverticular disease, Gastroenteritis, Impaction, Inflammatory BD and Other (comments) (DEHYDRATION, DEHYDRATION, UTI, ) COURSE Treatment Treatment: SEE ORDERS DONE WHILE PATIENT WAS IN ER. Education/Counseling Education/Counseling: Patient and Family Educated On: Treatment and Diagnosis ROR Labs Reviewed Laboratory Results Reviewed?: Yes Result Diagrams: 12/04/22 15:34 12/04/22 15:34 Laboratory: 12/04/22 19:29 Stool - Final WBC 18.1 X10^3/uL (3.6-10.0) H 12/04/22 15:34 RBC 5.38 X10^6/uL (4.7-6.0) 12/04/22 15:34 Hgb 15.9 g/dL (13.5-18.0) 12/04/22 15:34 Hct 46.6 % (42.0-54.0) 12/04/22 15:34 MCV 86.7 fL (80.0-100.0) 12/04/22 15:34 MCH 29.6 pg (27.0-34.0) 12/04/22 15:34 MCHC 34.2 g/dL (33.0-35.0) 12/04/22 15:34 RDW 13.7 % (11.6-16.5) 12/04/22 15:34 Plt Count 285 X10^3/uL (150.0-450.0) 12/04/22 15:34 MPV 9.5 fL (7.4-11.0) 12/04/22 15:34 Neut % (Auto) 83.6 % (42.0-75.0) H 12/04/22 15:34 Lymph % (Auto) 10.9 % (21.0-51.0) L 12/04/22 15:34 [place] % (Auto) 4.2 % (0.0-13.0) 12/04/22 15:34 Eos % (Auto) 0.5 % (0.9-2.9) L 12/04/22 15:34 Baso % (Auto) 0.8 % (0.2-1.0) 12/04/22 15:34 Neut # (Auto) 15.1 x10^3/uL (2.2-4.8) H 12/04/22 15:34 Lymph # (Auto) 2.0 X10^3/uL (1.3-2.9) 12/04/22 15:34 [place] # (Auto) 0.8 x10^3/uL (0.3-0.8) 12/04/22 15:34 Eos # (Auto) 0.1 x10^3/uL (0.0-0.2) 12/04/22 15:34 Baso # (Auto) 0.2 X10^3/uL (0.0-0.1) H 12/04/22 15:34 Absolute Nucleated RBC 0.0 /100WBC 12/04/22 15:34 Sodium 138 mmol/L (136-145) 12/04/22 15:34 Corrected Sodium 142 mmol/L (136-145) 12/04/22 15:34 Potassium 4.3 mmol/L (3.5-5.1) 12/04/22 15:34 Chloride 96 mmol/L (98-107) L 12/04/22 15:34 Carbon Dioxide 25.8 mmol/L (21-32) 12/04/22 15:34 BUN 15 mg/dL (7-18) 12/04/22 15:34 Creatinine 1.01 mg/dL (0.70-1.30) 12/04/22 15:34 Est GFR (MDRD) Af Amer > 60 (>60) 12/04/22 15:34 Est GFR (MDRD) Non-Af > 60 (>60) 12/04/22 15:34 Glucose 278 mg/dL (65-99) H 12/04/22 15:34 Calcium 9.1 mg/dL (8.5-10.1) 12/04/22 15:34 Corrected Calcium TNP 12/04/22 15:34 Total Bilirubin 0.80 mg/dL (0.2-1.0) 12/04/22 15:34 AST 42 Units/L (15-37) H 12/04/22 15:34 ALT 64 Units/L (12-78) 12/04/22 15:34 Alkaline Phosphatase 101 Units/L (46-116) 12/04/22 15:34 Total Protein 8.2 g/dL (6.4-8.2) 12/04/22 15:34 Albumin 4.9 g/dL (3.4-5.0) 12/04/22 15:34 Globulin 3.3 g/dL (2.5-4.5) 12/04/22 15:34 Albumin/Globulin Ratio 1.5 Ratio (1.1-2.1) 12/04/22 15:34 Specimen Type Clean catch urine 12/04/22 15:34 Urine Color Yellow (YELLOW) 12/04/22 15:34 Urine Appearance Clear (CLEAR) 12/04/22 15:34 Urine pH 5.0 (5.0 - 8.0) 12/04/22 15:34 Ur Specific [place] 1.020 (1.000-1.030) 12/04/22 15:34 Urine Protein 3+ (NEGATIVE) 12/04/22 15:34 Urine Glucose (UA) 4+ (NEGATIVE) 12/04/22 15:34 Urine Ketones 4+ (NEGATIVE) 12/04/22 15:34 Urine Blood 3+ (NEGATIVE) 12/04/22 15:34 Urine Nitrite Negative (NEGATIVE) 12/04/22 15:34 Urine Bilirubin Negative (NEGATIVE) 12/04/22 15:34 Urine Urobilinogen Normal (NORMAL) 12/04/22 15:34 Ur Leukocyte Esterase Negative (NEGATIVE) 12/04/22 15:34 Urine RBC 0-2 /HPF (0-3) 12/04/22 15:34 Urine WBC 0-2 /HPF (0-5) 12/04/22 15:34 Ur Squamous Epith Cells Rare /HPF (NEGATIVE) 12/04/22 15:34 Urine Bacteria Negative /HPF (NEGATIVE) 12/04/22 15:34 Urine Mucus Few /HPF (NEGATIVE) 12/04/22 15:34 Ur Culture Indicated? No/not indicated 12/04/22 15:34 Stl Occult Blood (IFOB) Negative (NEGATIVE) 12/04/22 19:29 Stool for White Cells Negative (NEGATIVE) 12/04/22 19:29 Stl C. diff Tox B Gene Negative (NEGATIVE) 12/04/22 19:29 Stl C. diff [id number] Presumptive negative (NEGATIVE) 12/04/22 19:29 Stool H. pylori Ag Negative (NEGATIVE) 12/04/22 19:29 Ethyl Alcohol mg/dL < 3.0 mg/dL (0-19.9) 12/04/22 19:05 Acetone, Semi-Quant Small (NEGATIVE) H 12/04/22 15:34 SARS-CoV-2 (PCR) Negative (NEGATIVE) 12/04/22 18:16 Cryptosporid parvum Ag Negative (NEGATIVE) 12/04/22 19:29 Giardia lamblia Ag Negative (NEGATIVE) 12/04/22 19:29 Influenza Type A (PCR) Negative (NEGATIVE) 12/04/22 18:16 Influenza Type B (PCR) Negative (NEGATIVE) 12/04/22 18:16 RSV (PCR) Negative (NEGATIVE) 12/04/22 18:16 XRAY XRAY Interpreted by: Radiologist (REPORT NOTED.) and Self Opioid Opioid Risk Tool Age (Juan C box if 16-45): Yes History of Preadolescent Sexual Abuse: No Total: 1 Total Score Risk Category: Low Risk Copyright: Epifanio DE OLIVEIRA predicting aberrant behaviors Discharge Plan Diagnosis Discharge Problem: Acute dehydration, Campylobacter diarrhea, Leucocytosis, Gastroenteritis, Abdominal pain, Nausea & vomiting Discharge Plan Patient Disposition: 09 ADMITTED INPATIENT Condition: Stable Orders to Discharge Patient Discharge Orders: Transfer (Routine); Ordered 12/04/22 Ordered By: TIFFANY STEPHENSON
[2022-12-04 15:43] LABS: BILIRUBIN,URINE NEGATIVE (NEGATIVE); BLOOD/HEMOGLOBIN,URINE 3+ (NEGATIVE); GLUCOSE, URINE 4+ (NEGATIVE); KETONES,URINE 4+ (NEGATIVE); LEUKOCYTE ESTERASE ,URINE NEGATIVE (NEGATIVE); NITRITES,URINE NEGATIVE (NEGATIVE); PROTEIN,URINE 3+ (NEGATIVE); UROBILINOGEN,URINE NORMAL (NORMAL)
[2022-12-04 15:44] LABS: EOSINOPHILS # (AUTO) 0.1 x10^3/uL (0.0-0.2); HEMOGLOBIN 15.9 g/dL (13.5-18.0)
[2022-12-04 15:48] LABS: BASOPHILS # (AUTO) 0.2 X10^3/uL (0.0-0.1); BASOPHILS % (AUTO) 0.8 % (0.2-1.0); EOSINOPHILS % (AUTO) 0.5 % (0.9-2.9); HEMATOCRIT 46.6 % (42.0-54.0); LYMPHOCYTES % (AUTO) 10.9 % (21.0-51.0); MEAN CORPUSCULAR HEMOGLOBIN 29.6 pg (27.0-34.0); MEAN CORPUSCULAR HGB CONC 34.2 g/dL (33.0-35.0); MEAN CORPUSCULAR VOLUME 86.7 fL (80.0-100.0); MEAN PLATELET VOLUME 9.5 fL (7.4-11.0); MONOCYTES # (AUTO) 0.8 x10^3/uL (0.3-0.8); MONOCYTES % (AUTO) 4.2 % (0.0-13.0); NEUTROPHILS # (AUTO) 15.1 x10^3/uL (2.2-4.8); NEUTROPHILS % (AUTO) 83.6 % (42.0-75.0); RED BLOOD COUNT 5.38 X10^6/uL (4.7-6.0); RED CELL DISTRIBUTION WIDTH 13.7 % (11.6-16.5); WHITE BLOOD COUNT 18.1 X10^3/uL (3.6-10.0)
[2022-12-04 15:53] LABS: SERUM ACETONE SMALL (NEGATIVE)
[2022-12-04 15:54] LABS: APPEARANCE,URINE CLEAR (CLEAR); BACTERIA,URINE NEGATIVE /HPF (NEGATIVE); COLOR,URINE YELLOW (YELLOW); RBC,URINE 0-2 /HPF (0-3); SQUAMOUS EPITHELIAL CELL,UR RARE /HPF (NEGATIVE)
[2022-12-04 15:55] LABS: ALANINE AMINOTRANSFERASE 64 Units/L (12-78); ALBUMIN 4.9 g/dL (3.4-5.0); ALKALINE PHOSPHATASE 101 Units/L (46-116); ASPARTATE AMINO TRANSFERASE 42 Units/L (15-37); BLOOD UREA NITROGEN 15 mg/dL (7-18); CALCIUM 9.1 mg/dL (8.5-10.1); CARBON DIOXIDE 25.8 mmol/L (21-32); CHLORIDE 96 mmol/L (98-107); COR NA(FOR HYPERGLY) 142 mmol/L (136-145); CREATININE 1.01 mg/dL (0.70-1.30); SODIUM 138 mmol/L (136-145); TOTAL PROTEIN 8.2 g/dL (6.4-8.2); eGFR NON BLACK RACES > 60 (>60)
[2022-12-04] MEDS ORDERED: NS 1,000 ML IV 1,000 ML IV SCH ×2 (16:20→23:55)
[2022-12-04] MEDS ORDERED: COMPAZINE INJ IVP ONE (17:46)
[2022-12-04] MEDS ORDERED: COMPAZINE INJ ONE (17:49)
[2022-12-04] MEDS ORDERED: PEPCID 20 MG VIAL IVP ONE (19:46)
[2022-12-04] MEDS ORDERED: REGLAN INJ 10 MG VIAL IVP ONE (19:47)
[2022-12-04] MEDS ORDERED: PEPCID 20 MG VIAL ONE (19:51)
[2022-12-04] MEDS ORDERED: REGLAN INJ 10 MG VIAL ONE (19:51)
[2022-12-04 20:25] LABS: CRYPTOSPORIDIUM PARVUM ANTIGEN NEGATIVE (NEGATIVE); GIARDIA LAMBLIA ANTIGEN NEGATIVE (NEGATIVE)
[2022-12-04] MEDS ORDERED: ZITHROMAX INJ 500 MG VIAL IV ONE (20:47)
[2022-12-04] MEDS ORDERED: NS 250 ML IV 250 ML IV ONE (20:48)
[2022-12-04] MEDS ORDERED: ZITHROMAX INJ 500 MG VIAL 500 MG in NS 250 ML IV 250 ML IV SCH (21:00)
[2022-12-04] MEDS ORDERED: PHENERGAN INJ 25 MG IM ONE ×2 (23:12)
[2022-12-04] MEDS ORDERED: NovoLIN R (or HumuLIN R) SC PRN (23:55)
[2022-12-05 00:28] VITALS: BMI 18.4
[2022-12-05] MEDS: ZOFRAN INJ 4 MG VIAL IVP PRN ×3 (01:19→12:16)
[2022-12-05] MEDS ORDERED: PHENERGAN SUPP 25 MG PR PRN (02:41)
[2022-12-05 05:53] LABS: ALANINE AMINOTRANSFERASE 53 Units/L (12-78); ALBUMIN 4.5 g/dL (3.4-5.0); ALKALINE PHOSPHATASE 93 Units/L (46-116); ASPARTATE AMINO TRANSFERASE 41 Units/L (15-37); BLOOD UREA NITROGEN 23 mg/dL (7-18); CALCIUM 8.5 mg/dL (8.5-10.1); CHLORIDE 97 mmol/L (98-107); COR NA(FOR HYPERGLY) 143 mmol/L (136-145); CREATININE 1.38 mg/dL (0.70-1.30); MAGNESIUM 1.9 mg/dL (2.0-2.9); SODIUM 134 mmol/L (136-145); TOTAL PROTEIN 7.3 g/dL (6.4-8.2); eGFR NON BLACK RACES > 60 (>60)
[2022-12-05 05:54] LABS: BASOPHILS # (AUTO) 0.2 X10^3/uL (0.0-0.1); BASOPHILS % (AUTO) 0.5 % (0.2-1.0); EOSINOPHILS % (AUTO) 0.1 % (0.9-2.9); HEMATOCRIT 42.4 % (42.0-54.0); LYMPHOCYTES # (AUTO) 1.8 X10^3/uL (1.3-2.9); LYMPHOCYTES % (AUTO) 5.3 % (21.0-51.0); MEAN CORPUSCULAR HEMOGLOBIN 29.3 pg (27.0-34.0); MEAN CORPUSCULAR HGB CONC 32.4 g/dL (33.0-35.0); MEAN CORPUSCULAR VOLUME 90.3 fL (80.0-100.0); MEAN PLATELET VOLUME 10.5 fL (7.4-11.0); MONOCYTES # (AUTO) 1.8 x10^3/uL (0.3-0.8); MONOCYTES % (AUTO) 5.4 % (0.0-13.0); NEUTROPHILS # (AUTO) 29.5 x10^3/uL (2.2-4.8); NEUTROPHILS % (AUTO) 88.7 % (42.0-75.0); RED BLOOD COUNT 4.69 X10^6/uL (4.7-6.0); RED CELL DISTRIBUTION WIDTH 13.9 % (11.6-16.5)
[2022-12-05 05:58] LABS: CARBON DIOXIDE 7.8 mmol/L (21-32)
[2022-12-05 05:59] LABS: HEMOGLOBIN 13.7 g/dL (13.5-18.0); WHITE BLOOD COUNT 33.2 X10^3/uL (3.6-10.0)
[2022-12-05] MEDS: LEVAQUIN PREMIX IV 500 MG 500 MG/100 ML BAG IV SCH ×2 (06:25→08:14)
[2022-12-05] MEDS ORDERED: COMPAZINE INJ IVP ONE (07:17)
[2022-12-05] MEDS ORDERED: COMPAZINE INJ IVP PRN (07:22)
[2022-12-05 07:43] LABS: ABG ALLEN TEST POS; ABG HCO3 4.9 mmol/L (22-26)
[2022-12-05] MEDS: NS 1,000 ML IV 1,000 ML with SODIUM BICARBONATE 8.4% INJ ADULT 50 ML IV SCH ×6 (07:55→23:33)
[2022-12-05] MEDS: MYXREDLIN 100 UNIT/100 ML BAG 100 UNIT/100 ML PLAST..BAG IV PRN ×2 (08:00→17:18)
[2022-12-05] MEDS: OTBSDRIP XX SCH ×16 (08:00→23:00)
--- NOTE | 2022-12-05 11:46 | DR.H&P ---
H&P History & Physical for Day of: H&P Date: 12/05/22 Chief Complaint Chief Complaint: Nausea, vomiting and diarrhea Allergies Allergies Allergy/AdvReac Type Severity Reaction Status Date / Time ibuprofen [From Motrin] Allergy Verified 10/01/22 05:42 morphine Allergy Verified 10/01/22 05:42 peanut Allergy Verified 10/01/22 05:42 Penicillins Allergy Verified 10/01/22 05:42 levofloxacin [From Levaquin] AdvReac Verified 12/05/22 08:42 History of Present Illness History of Present Illness: This is a pleasant 27-year-old white male who presented to [facility] emergency department with acute nausea vomiting and diarrhea. He is a known type I diabetic and has a recent history of Campylobacter diarrhea last month that resulted in DKA. He woke up yesterday morning about 9:00 in the morning feeling sick to his stomach and has some nausea and later developed diarrhea later in the day. He drank a little bit of alcohol last night and his symptoms became worse and then he proceeded to come to the emergency department for further work-up. Work-up revealed he had a leukocytosis of 18,100 with intractable nausea and vomiting. He had 4+ ketones in the urine and looked generally ill overall. Because of this we thought he was high risk for DKA and subsequently admitting for treatment with IV fluid and IV antibiotics. Within a few hours of the patient getting to the floor he he became worse so we did a serum acetone about 3:30 in the morning and it came back as small. I added IV Levaquin 500 mg IV daily and afterwards he developed tachycardia and after discussing this with him and his they reported that this happened to him last time he received Levaquin. We will be adding Levaquin to his allergies on medications. I like to go ahead and transfer him to the ICU started on insulin drip per protocol and we repeated his labs and his white blood cell count has gone up to 33,200. Potassium became elevated at 5.5. BUN and creatinine are elevated at 23 and 1.38 respectively. This consistent with dehydration. Repeat glucose was 552 around 330 this morning as well. After being on the insulin drip for about 3 hours his symptoms were improving and ABG was done and showed that he was acidotic with a pH just above 7. I had also ordered 1 amp of bicarb to be added to each unit of IV fluid. He has IV fluids going at 150 cc an hour. Past Medical History Past Medical History: Anxiety, Depression and Diabetes Past Surgical History Surgical History: Ortho Surgery Family History Family Medical History: Diabetes Mellitus, [place], Coronary Artery Disease, Heart Failure and Sudden Cardiac Social History Does patient currently use any type of tobacco product: No Have you used tobacco products in the last 12 months: No Type of Tobacco Use: None Does any household member use tobacco: No Alcohol Use: Rarely Drug Use: None Medications Home Medications: ibuprofen [From Motrin] Allergy (Verified 10/01/22 05:42) morphine Allergy (Verified 10/01/22 05:42) peanut Allergy (Verified 10/01/22 05:42) Penicillins Allergy (Verified 10/01/22 05:42) levofloxacin [From Levaquin] Adverse Reaction (Verified 12/05/22 08:42) CONTINUE taking the following medications insulin detemir U-100 100 unit/mL subcutaneous solution (Levemir U-100 Insulin) 16 unit subcut QHS 12/05/22 [History] Labs Result Diagrams: 12/05/22 05:24 12/05/22 07:50 Labs: 12/04/22 19:29 Stool - Final Laboratory WBC 33.2 X10^3/uL (3.6-10.0) H* D 12/05/22 05:24 RBC 4.69 X10^6/uL (4.7-6.0) L 12/05/22 05:24 Hgb 13.7 g/dL (13.5-18.0) D 12/05/22 05:24 Hct 42.4 % (42.0-54.0) 12/05/22 05:24 MCV 90.3 fL (80.0-100.0) 12/05/22 05:24 MCH 29.3 pg (27.0-34.0) 12/05/22 05:24 MCHC 32.4 g/dL (33.0-35.0) L 12/05/22 05:24 RDW 13.9 % (11.6-16.5) 12/05/22 05:24 Plt Count 280 X10^3/uL (150.0-450.0) 12/05/22 05:24 MPV 10.5 fL (7.4-11.0) 12/05/22 05:24 Neut % (Auto) 88.7 % (42.0-75.0) H 12/05/22 05:24 Lymph % (Auto) 5.3 % (21.0-51.0) L 12/05/22 05:24 Isabella % (Auto) 5.4 % (0.0-13.0) 12/05/22 05:24 Eos % (Auto) 0.1 % (0.9-2.9) L 12/05/22 05:24 Baso % (Auto) 0.5 % (0.2-1.0) 12/05/22 05:24 Neut # (Auto) 29.5 x10^3/uL (2.2-4.8) H 12/05/22 05:24 Lymph # (Auto) 1.8 X10^3/uL (1.3-2.9) 12/05/22 05:24 Isabella # (Auto) 1.8 x10^3/uL (0.3-0.8) H 12/05/22 05:24 Eos # (Auto) 0.0 x10^3/uL (0.0-0.2) 12/05/22 05:24 Baso # (Auto) 0.2 X10^3/uL (0.0-0.1) H 12/05/22 05:24 Absolute Nucleated RBC 0.1 /100WBC 12/05/22 05:24 Sample Site Rra 12/05/22 07:39 ABG pH 7.090 (7.35-7.45) L* 12/05/22 07:39 ABG pCO2 16.0 mmHg (35.0-45.0) L* 12/05/22 07:39 ABG pO2 115.0 mmHg (80.0-100.0) H 12/05/22 07:39 ABG HCO3 4.9 mmol/L (22-26) L* 12/05/22 07:39 ABG O2 Saturation 96.0 % (90-100) 12/05/22 07:39 ABG Base Excess -23.0 mmol/L (-2.0-2.0) L 12/05/22 07:39 Kishan Test Pos 12/05/22 07:39 A-a Gradient 15.0 mmHg 12/05/22 07:39 FiO2 21.0 12/05/22 07:39 Blood Gas Comments Pt breanna well eb 12/05/22 07:39 Sodium 134 mmol/L (136-145) L 12/05/22 05:24 Corrected Sodium 143 mmol/L (136-145) 12/05/22 05:24 Potassium 5.5 mmol/L (3.5-5.1) H 12/05/22 05:24 Chloride 97 mmol/L (98-107) L 12/05/22 05:24 Carbon Dioxide 7.8 mmol/L (21-32) L* 12/05/22 05:24 BUN 23 mg/dL (7-18) H 12/05/22 05:24 Creatinine 1.38 mg/dL (0.70-1.30) H 12/05/22 05:24 Est GFR (MDRD) Af Amer > 60 (>60) 12/05/22 05:24 Est GFR (MDRD) Non-Af > 60 (>60) 12/05/22 05:24 Glucose 552 mg/dL (65-99) H* 12/05/22 07:50 Lactic Acid 3.4 mmol/L (0.4-2.0) H 12/05/22 07:50 Calcium 8.5 mg/dL (8.5-10.1) 12/05/22 05:24 Corrected Calcium TNP 12/05/22 05:24 Magnesium 1.9 mg/dL (2.0-2.9) L 12/05/22 05:24 Total Bilirubin 0.70 mg/dL (0.2-1.0) 12/05/22 05:24 AST 41 Units/L (15-37) H 12/05/22 05:24 ALT 53 Units/L (12-78) 12/05/22 05:24 Alkaline Phosphatase 93 Units/L (46-116) 12/05/22 05:24 Total Protein 7.3 g/dL (6.4-8.2) 12/05/22 05:24 Albumin 4.5 g/dL (3.4-5.0) 12/05/22 05:24 Globulin 2.8 g/dL (2.5-4.5) 12/05/22 05:24 Albumin/Globulin Ratio 1.6 Ratio (1.1-2.1) 12/05/22 05:24 Specimen Type Clean catch urine 12/04/22 15:34 Urine Color Yellow (YELLOW) 12/04/22 15:34 Urine Appearance Clear (CLEAR) 12/04/22 15:34 Urine pH 5.0 (5.0 - 8.0) 12/04/22 15:34 Ur Specific [place] 1.020 (1.000-1.030) 12/04/22 15:34 Urine Protein 3+ (NEGATIVE) 12/04/22 15:34 Urine Glucose (UA) 4+ (NEGATIVE) 12/04/22 15:34 Urine Ketones 4+ (NEGATIVE) 12/04/22 15:34 Urine Blood 3+ (NEGATIVE) 12/04/22 15:34 Urine Nitrite Negative (NEGATIVE) 12/04/22 15:34 Urine Bilirubin Negative (NEGATIVE) 12/04/22 15:34 Urine Urobilinogen Normal (NORMAL) 12/04/22 15:34 Ur Leukocyte Esterase Negative (NEGATIVE) 12/04/22 15:34 Urine RBC 0-2 /HPF (0-3) 12/04/22 15:34 Urine WBC 0-2 /HPF (0-5) 12/04/22 15:34 Ur Squamous Epith Cells Rare /HPF (NEGATIVE) 12/04/22 15:34 Urine Bacteria Negative /HPF (NEGATIVE) 12/04/22 15:34 Urine Mucus Few /HPF (NEGATIVE) 12/04/22 15:34 Ur Culture Indicated? No/not indicated 12/04/22 15:34 Stl Occult Blood (IFOB) Negative (NEGATIVE) 12/04/22 19:29 Stool for White Cells Negative (NEGATIVE) 12/04/22 19:29 Stl C. diff Tox B Gene Negative (NEGATIVE) 12/04/22 19:29 Stl C. diff [id number] Presumptive negative (NEGATIVE) 12/04/22 19:29 Stool H. pylori Ag Negative (NEGATIVE) 12/04/22 19:29 Ethyl Alcohol mg/dL < 3.0 mg/dL (0-19.9) 12/04/22 19:05 Acetone, Semi-Quant Moderate (NEGATIVE) H 12/05/22 05:24 SARS-CoV-2 (PCR) Negative (NEGATIVE) 03/18/23 18:16 Cryptosporid parvum Ag Negative (NEGATIVE) 12/04/22 19:29 Giardia lamblia Ag Negative (NEGATIVE) 12/04/22 19:29 Influenza Type A (PCR) Negative (NEGATIVE) 12/04/22 18:16 Influenza Type B (PCR) Negative (NEGATIVE) 12/04/22 18:16 RSV (PCR) Negative (NEGATIVE) 12/04/22 18:16 Review of Systems Constitutional: Sweats, Weakness and Malaise Eyes: No Symptoms Reported ENT: No Symptoms Reported Respiratory: denies Cough, Shortness of Breath, Hemoptysis, SOB with Excertion, Sputum or Wheezing Cardiovascular: Palpitations and Light Headedness; denies Chest Pain, Orthopnea or Edema Gastrointestinal: Nausea, Vomiting and Diarrhea; denies Abdominal Pain, Melena or Hematochezia Genitourinary: No Symptoms Reported Musculoskeletal: No Symptoms Reported Skin: No Symptoms Reported Neurological: Weakness Physical Exam Vital Signs: Temperature 99 F Pulse Rate [Left Radial] 124 Pulse Rate 89 Respiratory Rate 20 Blood Pressure [Left Arm] 104/54 Blood Pressure [Right Arm] 119/54 Blood Pressure 134/87 O2 Sat by Pulse Oximetry 99 Oriented: Normal, Time, Person and Place; negative Not Oriented or Unable to test Eyes: Normal Ear: Normal Nose: Normal Respiratory: Clear Throughout Cardiovascular: Normal and Tachycardia Auscultation: Bowel Sounds: Increased Palpation: Normal Tenderness: Normal Skin: Decreased Turgur Musculoskeletal: Normal Psychiatric: Normal and Anxiety; negative Depression or Agitation Mood Description: Calm and Flat Affect: Normal; negative Anxious Speech Pattern: Clear and Appropriate; negative Inappropriate, Delayed, Slurred or Aphasic Assessment/Plan (1) Acute dehydration: Status: Acute Plan: IV fluid hydration. (2) Gastroenteritis: Status: Acute Plan: Follow-up stool culture. Patient has a recent history of Campylobacter jejuni infection. (3) Nausea & vomiting: Status: Acute Plan: Zofran and Compazine IV. Phenergan if needed also. (4) Diabetic keto-acidosis: Status: Acute Plan: Insulin drip per protocol. 1 amp of bicarb per liter of IV fluid. Recheck ABG at 1500 this afternoon. We will discontinue bicarb once he is acidosis resolved. (5) Hyperkalemia: Status: Acute Plan: We started insulin drip which will help decrease his potassium level we will repeat a BMP at noon. (6) Leucocytosis: Status: Acute Plan: IV Rocephin and IV doxycycline. Review H&P Reviewed: Yes Patient was examined?: Yes
[2022-12-05 12:11] LABS: BLOOD UREA NITROGEN 26 mg/dL (7-18); CALCIUM 8.2 mg/dL (8.5-10.1); CHLORIDE 106 mmol/L (98-107); COR NA(FOR HYPERGLY) 144 mmol/L (136-145); CREATININE 1.44 mg/dL (0.70-1.30); SODIUM 140 mmol/L (136-145); eGFR NON BLACK RACES > 60 (>60)
[2022-12-05 12:16] LABS: CARBON DIOXIDE 14.8 mmol/L (21-32)
[2022-12-05] MEDS: VIBRAMYCIN 100 MG in D5W 250 ML IV 250 ML IV SCH ×2 (12:31→20:51)
[2022-12-05] MEDS: ROCEPHIN VIAL 1 GRAM 1 G in NS 100 ML IV 100 ML IV SCH (15:41)
[2022-12-05 16:10] LABS: ABG BASE EXCESS -7.5 mmol/L (-2.0-2.0)
[2022-12-05 16:11] LABS: ABG ALLEN TEST POS; ABG HCO3 17.3 mmol/L (22-26)
[2022-12-05] MEDS ORDERED: ZITHROMAX INJ 500 MG VIAL 500 MG in NS 250 ML IV 250 ML IV SCH (21:00)
[2022-12-06] MEDS: OTBSDRIP XX SCH ×8 (01:00→07:24)
[2022-12-06 05:11] LABS: ALANINE AMINOTRANSFERASE 40 Units/L (12-78); ALBUMIN 3.2 g/dL (3.4-5.0); ALKALINE PHOSPHATASE 66 Units/L (46-116); ASPARTATE AMINO TRANSFERASE 27 Units/L (15-37); BLOOD UREA NITROGEN 18 mg/dL (7-18); CALCIUM 7.9 mg/dL (8.5-10.1); CARBON DIOXIDE 27.1 mmol/L (21-32); CHLORIDE 108 mmol/L (98-107); COR CA(FOR HYPOALB) 8.5 mg/dL (8.5-10.1); COR NA(FOR HYPERGLY) 144 mmol/L (136-145); CREATININE 1.04 mg/dL (0.70-1.30); SERUM ACETONE SMALL (NEGATIVE); SODIUM 143 mmol/L (136-145); TOTAL PROTEIN 5.6 g/dL (6.4-8.2); eGFR NON BLACK RACES > 60 (>60)
[2022-12-06 05:18] LABS: MEAN PLATELET VOLUME 9.3 fL (7.4-11.0)
[2022-12-06 05:21] LABS: BASOPHILS # (AUTO) 0.1 X10^3/uL (0.0-0.1); BASOPHILS % (AUTO) 0.2 % (0.2-1.0); HEMATOCRIT 33.9 % (42.0-54.0); HEMOGLOBIN 11.8 g/dL (13.5-18.0); LYMPHOCYTES # (AUTO) 1.7 X10^3/uL (1.3-2.9); LYMPHOCYTES % (AUTO) 6.4 % (21.0-51.0); MEAN CORPUSCULAR HEMOGLOBIN 29.7 pg (27.0-34.0); MEAN CORPUSCULAR HGB CONC 34.7 g/dL (33.0-35.0); MEAN CORPUSCULAR VOLUME 85.6 fL (80.0-100.0); MONOCYTES # (AUTO) 1.6 x10^3/uL (0.3-0.8); MONOCYTES % (AUTO) 5.9 % (0.0-13.0); NEUTROPHILS # (AUTO) 23.7 x10^3/uL (2.2-4.8); NEUTROPHILS % (AUTO) 87.5 % (42.0-75.0); RED BLOOD COUNT 3.96 X10^6/uL (4.7-6.0); RED CELL DISTRIBUTION WIDTH 13.9 % (11.6-16.5); WHITE BLOOD COUNT 27.1 X10^3/uL (3.6-10.0)
[2022-12-06 05:38] LABS: BAND NEUTROPHILS % 1 % (0-10); PLATELET MORPHOLOGY COMMENT NORMAL (NORMAL)
[2022-12-06] MEDS: MYXREDLIN 100 UNIT/100 ML BAG 100 UNIT/100 ML PLAST..BAG IV PRN (07:25)
[2022-12-06] MEDS: ROCEPHIN VIAL 1 GRAM 1 G in NS 100 ML IV 100 ML IV SCH (08:08)
[2022-12-06 08:45] VITALS: BP 111/57
== END 2022-12-06 08:50 | disposition left against medical advice (07) | DRG 639 ==
LOC: ER 14:03 → MED/SURG 14:03 → OBSVTOIN 23:34 → MED/SURG 23:55 → ICU 12-05 07:56
PROVIDERS: ADMIT Family Medicine; ATTEND Family Medicine
DX: R11.2 Nausea with vomiting, unspecified; Z53.29 Procedure and treatment not carried out because of patient's decision for other reasons; E86.0 Dehydration; K52.89 Other specified noninfective gastroenteritis and colitis; R10.84 Generalized abdominal pain; E87.5 Hyperkalemia; E10.10 Type 1 diabetes mellitus with ketoacidosis without coma